=== PATIENT | male | born 1955 | race Caucasian/White ===

== ENCOUNTER 2021-02-14 09:46 | Outpatient (REF) | payer OTHER, SELFPAY ==
[2021-02-14 11:21] LABS: MANUAL DIFF FLAG NO
[2021-02-14 11:32] LABS: Basophils Percent Auto 0.2 % (0-2); Eosinophils Absolute Auto 0.1 X10*3/uL (0.0-0.4); Eosinophils Percent Auto 1.7 % (0-4); Hematocrit 40.9 % (42-52); Hemoglobin 13.6 g/dl (14.0-18.0); Imm Gran Abs Auto 0.02 X10*3/uL (0.00-0.03); Imm Gran Pct Auto 0.4 % (0.0-0.4); Lymphocytes Absolute Auto 1.1 X10*3/uL (1.2-4.9); Lymphocytes Percent Auto 20.6 % (20-40); Mean Corpuscular HGB Conc 33.3 g/dl (31.0-36.0); Mean Corpuscular Hemoglobin 32.7 pg (27.0-33.0); Mean Corpuscular Volume 98.3 fL (80-98); Mean Platelet Volume 9.3 fL (9.4-12.4); Monocytes Absolute Auto 0.4 X10*3/uL (0.1-1.2); Monocytes Percent Auto 7.8 % (2-11); Neutrophils Absolute Auto 3.7 X10*3/uL (2.0-8.3); Neutrophils Percent Auto 69.3 % (45-73); Platelet Count 282 X10*3/uL (160-400); Red Blood Count 4.16 X10*6/uL (4.60-5.80); Red Cell Distribution Width 13.5 % (11.0-16.0); White Blood Count 5.3 X10*3/uL (4.8-10.8)
[2021-02-14 12:10] LABS: Alanine Aminotransferase 16 U/L (0-40); Alkaline Phosphatase 57 U/L (39-117); Anion Gap 14 (12-20); Aspartate Amino Transferase 21 U/L (5-37); Bilirubin Total 0.9 mg/dL (0.0-1.0); Blood Urea Nitrogen 11 mg/dL (9-16); Calcium 8.9 mg/dL (8.4-10.2); Carbon Dioxide 25 mmol/L (22-29); Chloride 101 mmol/L (96-108); Cholesterol 148 mg/dL; Estimated Glomerular Filt Rate > 60; Glucose Fasting 114 mg/dL (60-99); HDL Cholesterol 78 mg/dL; LDL Cholesterol Calculated 65 mg/dl; Potassium 4.7 mmol/L (3.3-5.1); Sodium 135 mmol/L (135-145); Total Protein 6.8 g/dL (6.5-8.0); Triglycerides 28 mg/dL
== END 2021-02-14 09:47 | disposition home or self-care (01) ==
LOC: HO.MANLDS 09:46
PROVIDERS: PCP Internal Medicine; Visit Provider Physician Assistant
DX: E78.00 Pure hypercholesterolemia, unspecified (principal)
CPT/HCPCS: 36415; 80053; 80061; 85025

== ENCOUNTER 2021-12-22 11:58 | Outpatient (REF) | payer MEDICARE, OTHER, SELFPAY ==
[2021-12-22 13:03] LABS: Appearance Urine CLEAR; Color Urine YELLOW; Glucose Urine UA NEG (NEG); Leukocyte Esterase Urine NEG (NEG); Nitrite Urine NEG (NEG); Specific Gravity - Urine <= 1.005 (1.005-1.025); Urine Blood NEG (NEG); Urine Ketones NEG (NEG); Urine Protein NEG (NEG-TRACE)
== END 2021-12-22 11:59 | disposition home or self-care (01) ==
LOC: HO.MANLNP 11:58
PROVIDERS: Visit Provider Physician Assistant
DX: R30.0 Dysuria (principal)
CPT/HCPCS: 81003

== ENCOUNTER 2023-05-15 10:11 | Outpatient (REF) | payer MEDICARE, SELFPAY ==
[2023-05-15 10:24] LABS: MANUAL DIFF FLAG NO
[2023-05-15 10:58] LABS: Basophils Percent Auto 0.5 % (0-2); Eosinophils Absolute Auto 0.1 X10*3/uL (0.0-0.4); Eosinophils Percent Auto 1.6 % (0-4); Hematocrit 39.4 % (42.0-52.0); Hemoglobin 13.5 g/dl (14.0-18.0); Imm Gran Abs Auto 0.02 X10*3/uL (0.00-0.03); Imm Gran Pct Auto 0.3 % (0.0-0.4); Lymphocytes Absolute Auto 1.1 X10*3/uL (1.2-4.9); Mean Corpuscular HGB Conc 34.3 g/dl (31.0-36.0); Mean Corpuscular Hemoglobin 32.8 pg (27.0-33.0); Mean Corpuscular Volume 95.6 fL (80.0-98.0); Mean Platelet Volume 8.5 fL (9.4-12.4); Monocytes Absolute Auto 0.5 X10*3/uL (0.1-1.2); Neutrophils Absolute Auto 4.4 x10*3/uL (2.0-8.3); Neutrophils Percent Auto 71.6 % (45-73); Platelet Count 312 X10*3/uL (160-400); Red Blood Count 4.12 X10*6/uL (4.60-5.80); White Blood Count 6.2 X10*3/uL (4.8-10.8)
[2023-05-15 11:40] LABS: Alanine Aminotransferase 20 U/L (0-40); Albumin Level 4.2 g/dL (3.5-5.0); Alkaline Phosphatase 58 U/L (39-117); Anion Gap 15 (12-20); Aspartate Amino Transferase 26 U/L (5-37); Bilirubin Total 0.7 mg/dL (0.0-1.0); Blood Urea Nitrogen 12 mg/dL (9-16); Calcium 9.1 mg/dL (8.4-10.2); Carbon Dioxide 26 mmol/L (22-29); Chloride 97 mmol/L (96-108); Estimated Glomerular Filt Rate > 60; Glucose Random 109 mg/dL (60-115); Potassium 4.6 mmol/L (3.3-5.1); Sodium 133 mmol/L (135-145); Total Protein 7.1 g/dL (6.5-8.0)
[2023-05-15 11:58] LABS: Thyroid Stimulating Hormone 1.38 uIU/mL (0.32-4.0)
== END 2023-05-15 10:12 | disposition home or self-care (01) ==
LOC: HO.LAB 10:11
PROVIDERS: PCP Internal Medicine; Visit Provider Internal Medicine
DX: F32.A Depression, unspecified (principal)
CPT/HCPCS: 36415; 80053; 84443; 85025

== ENCOUNTER 2023-06-12 18:52 | Outpatient (REF) | payer MEDICARE, OTHER, SELFPAY ==
--- NOTE | ~2023-06-12 | MR_ITS ---
EXAMINATION: MR BRAIN WITHOUT CONTRAST CLINICAL INFORMATION: Head injury, memory loss, forgetfulness COMPARISON: None available. TECHNIQUE: MRI of the brain was obtained using routine sequences without contrast. FINDINGS: There is no reduced diffusion to suggest acute infarct. Susceptibility weighted sequence is within normal limits. No mass effect, extra-axial collection, midline shift, or other herniation. Generalized cerebral volume loss with associated ventricular and sulcal prominence. Periventricular and subcortical T2/FLAIR hyperintense foci are specific but likely represent chronic microvascular ischemic change. Likely mild asymmetric volume loss in the left hippocampus. Intracranial flow voids are preserved. Trace mucosal thickening in the ethmoid air cells. The mastoid air cells are well-aerated. No expansile or destructive osseous lesion. MR/MR head/brain wo con IMPRESSION: Generalized cerebral volume loss with associated ventricular and sulcal prominence. Mild chronic microvascular ischemic change.
== END 2023-06-12 18:53 | disposition home or self-care (01) ==
LOC: HO.MRI 18:52
PROVIDERS: PCP Internal Medicine; Visit Provider Internal Medicine
DX: S09.90XA Unspecified injury of head, initial encounter (principal)
CPT/HCPCS: 70551

== ENCOUNTER → 2023-09-02 08:31 | Outpatient (REF) | payer MEDICARE, OTHER, SELFPAY ==
--- NOTE | 2023-09-02 08:37 | ECG_ITS ---
Test Reason : Z79.899 Blood Pressure : / mmHG Vent. Rate : 099 BPM Atrial Rate : 099 BPM P-R Int : 166 ms QRS Dur : 092 ms QT Int : 336 ms P-R-T Axes : 000 056 012 degrees QTc Int : 431 ms Rhythm shows atrial flutter with variable block Abnormal ECG When compared with ECG of 21-JUN-2003 11:03, Rhythm change Referred By: Néstor Busch Electronically Signed By:ROSELYN OCHOA
== END ==
LOC: HO.CARD 08:31
PROVIDERS: PCP Internal Medicine; Visit Provider Internal Medicine
DX: Z79.899 Other long term (current) drug therapy (principal)
CPT/HCPCS: 93005

== ENCOUNTER → 2023-09-02 08:37 | Outpatient (BNV) | payer MEDICARE, OTHER, SELFPAY | PROVIDERS: PCP Internal Medicine; Visit Provider Internal Medicine | DX: I48.92 Unspecified atrial flutter (principal); Z79.899 Other long term (current) drug therapy | CPT/HCPCS: 93010 ==

== ENCOUNTER 2023-09-10 12:44 | Outpatient (AMB) | payer MEDICARE, OTHER, SELFPAY ==
--- NOTE | 2023-09-10 12:51 | MHC.OFFVIS ---
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 It seems that he has been having a lot of memory issues. That led to him being on citalopram through his own PCP. As part of monitoring, he had a routine EKG and that showed atrial flutter leading to referral. Patient himself does not have any history of cardiac issues including coronary disease or myocardial infarction or cardiomyopathy. Also denies any chest pain or shortness of breath or any symptoms at all. As far as memory is concerned, it seems there is some improvement recently. No clear diagnosis as to why. [facility] Surgical History (Updated 09/10/23 @ 13:00 by Emily Jones) Total knee replacement status Family History (Updated 09/10/23 @ 13:01 by Emily Jones) Mother No problems noted. Father Heart problem Social History (Updated 09/10/23 @ 13:01 by Emily Jones) Alcohol intake: current Alcohol intake frequency: holidays/special occasions only Patient Tobacco Use Status: Never used Tobacco Review of Systems Const Denies chills, Denies daytime sleepiness, Denies fatigue, Denies fever(s), Denies frequent falls, Denies night sweats, Denies snoring, Denies weakness, Denies weight gain and Denies weight loss Eyes Denies loss of vision ENT Denies dizziness and Denies hearing loss Card Denies chest pain, Denies chest pain with activity, Denies syncope, Denies rapid heart rate, Denies edema, Denies claudication, Denies leg edema, Denies lightheadedness, Denies palpitations, Denies dyspnea, Denies dyspnea on exertion and Denies orthopnea Resp Denies cough, Denies excessive phlegm production, Denies dyspnea, Denies dyspnea on exertion, Denies snoring and Denies wheezing GI Denies abdominal pain, Denies hematochezia, Denies change in bowel habits, Denies change in stool character, Denies heartburn, Denies nausea and Denies vomiting Denies hematuria, Denies dysuria and Denies urinary frequency Musc Denies arthralgias, Denies muscle weakness, Denies numbness and Denies tingling Skin/Breast Denies nail changes and Denies rash Neuro Denies Abnormal speech present, Denies dizziness, Denies syncope, Denies frequent falls, Denies loss of vision, Denies memory loss, Denies numbness, Denies tingling and Denies weakness Psych Denies depression and Denies memory loss Endo Denies fatigue and Denies palpitations Aller/Immun Denies wheezing Physical Exam Vital Signs: Last Vital Signs Pulse 71 09/10/23 12:57 BP 136/72 09/10/23 12:57 BMI result Body Mass Index 34.7 Const General: comfortable and no acute distress Orientation/consciousness: patient oriented x3 HEENT Other: Unremarkable Head: Yes normal to inspection Neck Neck: Yes normal visual inspection Chest Chest palpation & inspection: normal inspection of the chest Resp Auscultation: clear to auscultation bilaterally Cardio Palpation: normal PMI Heart sounds: S1 normal heart sound present, S2 normal heart sound present, no gallops, no murmurs and no rubs GI Palpation (GI): Soft to palpation Back/Spine/Pelvis Other: unremarkable Skin General skin exam: no rashes or lesions noted Neuro General: patient oriented x3 Speech: No Abnormal speech present Extrem General: Yes normal to inspection Psych Mental Status: mental status grossly normal Assessment & Plan Assessment & Plan (1) Typical atrial flutter: Code(s): I48.3 - Typical atrial flutter Plan In the recent EKG, underlying rhythm is atrial flutter at a rate of 99/Min. Variable block. There is no recent EKG for comparison and the previous studies from more than 20 years ago. That showed sinus rhythm. Overall, recently diagnosed atrial flutter of unknown duration. Rate control without medications suggestive of conduction system disease as well. Patient denies any overt symptoms. With regard to workup, recommend getting an echocardiogram, Holter as well as ischemic workup with stress test. Highly unlikely to exercise on the treadmill and hence do pharmacological stress test with Lexiscan. His labs are fairly unremarkable in the past. Check protime INR. Has relatively low CHADS-VASc score but still recommend starting Eliquis at least for the foreseeable future. Then we can decide. Due to patient having memory issues, not clear how much she comprehends but explained to his in detail. She understands and actually wrote down. If the memory problems get worse, then consider neurology consultation. Not clear if early stages of dementia. Orders: Orders CA echo transthoracic complete Today I48.3 - Typical atrial flutter ECG 3 day holter monitor Today I48.3 - Typical atrial flutter Basic Metabolic Panel Today I48.3 - Typical atrial flutter Prothrombin Time INR Today I48.3 - Typical atrial flutter CA lexiscan stress w erik Today I20.9 - Angina pectoris, unspecified, I48.3 - Typical atrial flutter NM cardiolite stress test Today I48.3 - Typical atrial flutter, R07.2 - Precordial pain Medications: New apixaban (Eliquis) 5 mg PO BID 180 tabs 3RF 90 days I48.3 - Typical atrial flutter Coding Level of Care Code New Pt Level 4 (38754) Diagnoses Typical atrial flutter I48.3
[2023-09-10 12:57] VITALS: BP 136/72; PULSE 71; BMI 34.7
== END 2023-09-10 13:24 | disposition home or self-care (01) ==
PROVIDERS: PCP Internal Medicine; Visit Provider Internal Medicine
DX: I48.3 Typical atrial flutter (principal)
CPT/HCPCS: 99204

== ENCOUNTER 2023-09-10 12:44 | Outpatient (REF) | payer MEDICARE, OTHER, SELFPAY ==
[2023-09-10 14:53] LABS: INTERNATIONAL NORM RATIO 0.9 (0.9-1.1); Prothrombin Time 11.5 SEC (11.1-13.3)
[2023-09-10 15:09] LABS: Anion Gap 10 (12-20); Blood Urea Nitrogen 12 mg/dL (9-16); Calcium 8.7 mg/dL (8.4-10.2); Carbon Dioxide 27 mmol/L (22-29); Chloride 100 mmol/L (96-108); Estimated Glomerular Filt Rate > 60; Glucose Random 83 mg/dL (60-115); Potassium 4.4 mmol/L (3.3-5.1); Sodium 133 mmol/L (135-145)
== END 2023-09-10 12:45 | disposition home or self-care (01) ==
LOC: HO.LAB 12:44
PROVIDERS: PCP Internal Medicine; Visit Provider Internal Medicine
DX: I48.3 Typical atrial flutter (principal)
CPT/HCPCS: 36415; 80048; 85610; 99202

== ENCOUNTER → 2023-10-15 07:54 | Outpatient (REF) | payer MEDICARE, OTHER, SELFPAY ==
--- NOTE | ~2023-10-15 | NM_ITS ---
Lexiscan Myocardial perfusion study Indication: Atrial flutter, assess for coronary disease ischemia Technique: The patient was brought in for a Lexiscan perfusion study on 10/15/2023 and was injected 0.4 mg of Lexiscan intravenously. Within a minute of this injection 30 mCi of sestamibi was given intravenously. Images were obtained using the SPECT gamma camera interlaced with the gating device. Images were obtained in supine position. Resting perfusion study was performed on 10/18/2023. Patient was administered 30 mCi of sestamibi intravenously at rest. Images were then obtained in supine position. Images were processed with the software and compared side to side in short axis, horizontal long axis and vertical long axis views. Total DLP 106mGy-cm. Findings: Raw acquisition reviewed. The stress perfusion study showed no significant perfusion abnormality. Both uncorrected as well as CT attenuation corrected images were reviewed. The gated study shows normal LV systolic function with calculated LVEF of 60%. LV cavity is normal in size. The gated study shows normal wall thickening and contraction of segments. Resting study shows no significant perfusion abnormality. Gating at rest reveals normal wall motion with ejection fraction at 62%. The findings are consistent with no clear reversible or fixed perfusion abnormality. NM/NM cardiolite stress test Impression: 1. Myocardial perfusion imaging study shows normal myocardial perfusion. 2. Gated LVEF is 60% during stress and 62% during rest. 3. Transient ischemic dilatation not present. EKG component of the test reported separately.
--- NOTE | 2023-10-15 08:01 | CA_ITS ---
Transthoracic Echocardiogram Patient (Last, First, Middle): Kash Cruz, Gender: Male Date of : 1955 Age: 68 Procedure Date: 10/15/2023 Procedure Type: Transthoracic Echocardiogram Location: OP Height: 170.18 cm Weight: 95.26 kg BSA: 2.06 m2 Heart Rate: bpm BP: 140 / 72 mmHg Mercantile Agent: TO Referring MD: Sudhakar Springer MD Symptoms: I48.3 - Typical atrial flutter Study Quality: Fair ECG Rhythm: Atrial flutter Conclusions: - The left ventricular systolic function is mildly decreased. The calculated ejection fraction is 51% by biplane method. - Left atrium is at least moderately dilated. - No obvious valvular pathology seen on this study. Findings Left Ventricle Normal left ventricular cavity size. The left ventricular systolic function is mildly decreased. The calculated ejection fraction is 51% by biplane method. There is no evidence of regional wall motion abnormalities. Diastolic function is indeterminate on the basis of available data. There is mild septal asymmetric hypertrophy. Right Ventricle Normal right ventricular cavity size and systolic function. Atria Left atrium is at least moderately dilated. The right atrium is normal in size. Aortic Valve The aortic valve structure and function is likely normal. There is no aortic valve stenosis. There is no aortic valve regurgitation. Mitral Valve The mitral valve appears normal. There is trace mitral valve regurgitation. There is no mitral valve stenosis. Pulmonic Valve The pulmonic valve is likely normal. Tricuspid Valve There is trace tricuspid valve regurgitation. Tricuspid regurgitation envelope is inadequate for calculation of right ventricular systolic pressure. Great Vessels The asc aorta is normal in size. Venous The inferior vena cava is mildly dilated and collapses greater than 50% with inspiration. Pericardium/Pleural There is no evidence of pericardial effusion. Prior Study Comparison No prior study available for comparison. Recommendations, Care & Conclusions No obvious valvular pathology seen on this study. Measurements 2D Linear Measurements IVSd: 1.10 0.6-0.9/0.6-1.0 cm LVIDd: 5.76 3.9-5.3/4.2-5.9 cm LVIDd Index: 2.80 2.4-3.2/2.2-3.1 cm/m2 LVIDs: 4.27 2.0-3.6 cm LVPWd: 0.85 0.7-1.1 cm LA Diam: 4.90 2.7-3.8/3.0-4.0 cm LAIDs Index: 2.38 1.5-2.3 cm/m2 LV Mass: 276.97 67-162/88-224 g LV Mass Index: 134.45 43-95/49-115 g/m2 LVOT Diam: 2.40 3.0+(-)1.3 cm 2D Systolic Function EF 4C: 55.30 >55% EF 2C: 48.10 >55% EF BiP: 51.40 >55% Mitral Valve MV Pk E: 0.80 MV PK A: 0.55 MV Decel Time: 163.00 E/A: 1.50 E'Lateral: 13.10 E'Medial: 10.30 E/E' Med: 7.70 E/E' Lat: 6.10 PHT: 48.00 MVA PHT: 4.58 Decel [place]: 5.49 Aortic Valve AoV Pk Frank: 1.23 AoV Pk Grad: 6.00 LVOT LVOT Pk Frank: 0.87 LVOT Mn Frank: 0.58 LVOT VTI: 0.18 LVOT Pk Grad: 3.00 LVOT Mn Grad: 2.00 LVOT Diam: 2.40 LVOT Area: 4.52 Diastolic Function MV Pk E: 0.80 MV Pk A: 0.55 E/A: 1.50 E'Medial: 10.30 E/E' Med: 7.70 E' Laterial: 13.10 E/E' Lat: 6.10 Right Ventricle TAPSE (mm): 23.60 TVS' Frank: 14.30 Tricuspid Valve RA Press: 8.00 Great Vessels Aorta Sinus of Valsalva: 3.89 2.0-3.5 cm Ao Asc: 3.70 2.1-3.4 cm Updated in Other Vendor System with Status of Final Sudhakar Springer MD electronically signed on 10/17/2023 11:15:14 AM with status of Final
--- NOTE | 2023-10-15 08:01 | CA_ITS ---
Acquisition Time: 2023-10-15 09:37:06 Total Exercise Time: 00:02:00 Test Indications: AFLUTTER Medications: Protocol: LEXISCAN Max HR: 126 BPM 82% of Pred: 153 BPM Max BP: 152/082 mmHG Max Work Load: 1.0 METS Pharmacological stress test with lexiscan injection while sitting still, without anginal symptoms, without arrhythmias, with resting HTN, with normotenisve response to injection, with nondiagnostic EKGs. Aminophylline 75mg IVP given to reverse Lexiscan injection. Nuclear images pending. Test reviewed with Dr. Springer. Referred By: Sudhakar Springer Overread By: Marcella Martinez
--- NOTE | 2023-10-15 08:01 | HM_ITS ---
Conclusion: 1. Patient was monitored for total period of 3 days 2. Baseline was atrial fibrillation with average heart of 85 beats per minute 3. No significant pauses noted 4. No patient reported events MTDD
== END ==
LOC: HO.CARD 07:54
PROVIDERS: PCP Internal Medicine; Visit Provider Internal Medicine
DX: R07.2 Precordial pain (principal); I20.9 Angina pectoris, unspecified; I48.3 Typical atrial flutter
CPT/HCPCS: 78452; 93017; 93242; 93306; A9500; J0280; J2785

== ENCOUNTER → 2023-10-15 08:01 | Outpatient (BNV) | payer MEDICARE, OTHER, SELFPAY | PROVIDERS: PCP Internal Medicine; Visit Provider Nurse Practitioner | DX: I48.91 Unspecified atrial fibrillation (principal) | CPT/HCPCS: 78452; 93016; 93018; 93244; 93350 ==

== ENCOUNTER 2023-11-26 12:47 | Outpatient (AMB) | payer MEDICARE, OTHER, SELFPAY ==
[2023-11-26 12:52] VITALS: BP 130/70; PULSE 89; BMI 35.4
--- NOTE | 2023-11-26 12:52 | MHC.OFFVIS ---
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 Recently seen in consultation regarding atrial flutter. He has memory issues and that led him to start citalopram through his own PCP. As part of monitoring, he had a routine EKG and that showed atrial flutter leading to referral. Patient himself does not have any history of cardiac issues including coronary disease or myocardial infarction or cardiomyopathy. Also denies any chest pain or shortness of breath or any symptoms at all. Since last seen, he has completed an echocardiogram, Holter and stress test. [facility] Surgical History Total knee replacement status Family History Mother No problems noted. Father Heart problem Social History Alcohol intake: current Alcohol intake frequency: holidays/special occasions only Patient Tobacco Use Status: Never used Tobacco Review of Systems Const Denies chills, Denies fatigue, Denies fever(s), Denies frequent falls, Denies weakness, Denies weight gain and Denies weight loss ENT Denies dizziness Card Denies chest pain, Denies leg edema, Denies lightheadedness, Denies palpitations, Denies dyspnea and Denies dyspnea on exertion Resp Denies cough, Denies dyspnea and Denies dyspnea on exertion GI Denies hematochezia Musc Denies abnormal gait, Denies muscle weakness, Denies numbness, Denies radiating pain into limb and Denies tingling Neuro Denies abnormal gait, Denies dizziness, Denies frequent falls, Denies numbness, Denies tingling and Denies weakness Endo Denies fatigue and Denies palpitations Physical Exam Vital Signs: Last Vital Signs Pulse 89 11/26/23 12:52 BP 130/70 11/26/23 12:52 BMI result Body Mass Index 35.4 Const General: comfortable and no acute distress Orientation/consciousness: patient oriented x3 HEENT Other: Unremarkable Head: Yes normal to inspection Neck Neck: Yes normal visual inspection Chest Chest palpation & inspection: normal inspection of the chest Resp Auscultation: clear to auscultation bilaterally Cardio Palpation: normal PMI Heart sounds: S1 normal heart sound present, S2 normal heart sound present, no gallops, no murmurs and no rubs GI Palpation (GI): Soft to palpation Back/Spine/Pelvis Other: unremarkable Skin General skin exam: no rashes or lesions noted Neuro General: patient oriented x3 Extrem General: Yes normal to inspection Psych Mental Status: mental status grossly normal Office Procedures EKG Details: EKG with atrial flutter with variable block at 89/Min; can not exclude old inferior infarct. [id number], Complete Assessment & Plan Assessment & Plan (1) Typical atrial flutter: Code(s): I48.3 - Typical atrial flutter Category: Medical Plan Cardiac studies reviewed. EKG with atrial flutter/variable block. Holter monitor with underlying atrial flutter/fibrillation and adequately rate controlled. Echocardiogram with mild reduced LVEF at 51%. Left atrium at least moderately dilated. Myocardial perfusion imaging study shows normal perfusion. Overall, atrial flutter of unknown duration. He has no overt symptoms but relatively of young age and hence would like to keep him in sinus rhythm. Hence discussed about cardioversion and they agree. We can schedule and proceed. He is taken anticoagulation for at least 4 weeks' time. Discussed with significant other. Coding Level of Care Code Est Pt Level 4 (08994) Diagnoses Typical atrial flutter I48.3 CPT Codes EKG - CPT: 90631-[id number], Complete ([id number])
== END 2023-11-26 13:30 | disposition home or self-care (01) ==
PROVIDERS: PCP Internal Medicine; Visit Provider Internal Medicine
DX: I48.3 Typical atrial flutter (principal)
CPT/HCPCS: 93010; 99214

== ENCOUNTER → 2023-11-26 12:47 | Outpatient (BNVA) | payer MEDICARE, OTHER, SELFPAY | PROVIDERS: PCP Internal Medicine; Visit Provider Internal Medicine | DX: I48.3 Typical atrial flutter (principal) | CPT/HCPCS: 93005; 99212 ==

== ENCOUNTER 2023-11-29 11:15 | Day surgery (SDC) | payer MEDICARE, OTHER, SELFPAY ==
--- NOTE | 2023-11-28 09:43 | HO.ANESPROP2 ---
Documented by User: Tatiana Hitchcock NP 11/28/23 09:48 HPI - Anesthesia Eval Consult details Narrative: 68yo M for Cardioversion xarelto for afib PMFSH Active Problems Active Problems: All Active Problems Typical atrial flutter (Acute) Past Medical History Medical History (Updated 11/28/23 @ 09:48 by Tatiana Hitchcock NP) Typical atrial flutter Family History Family History Mother No problems noted. Father Heart problem Surgical History Surgical History Total knee replacement status Social History Social History Alcohol intake: current Alcohol intake frequency: holidays/special occasions only Patient Tobacco Use Status: Never used Tobacco Use of substances other than those prescribed or required for medical reasons: No Are you DNR?: No Advance Directives: No Advance Directives Information Provided: Yes Meds Allergies Allergy/AdvReac Type Severity Reaction Status Date / Time No Known Allergies Allergy Verified 11/29/23 11:58 Home Medications ?Medication ?Instructions ?Recorded ?Confirmed ?Last Taken ?Type citalopram 40 mg tablet 20 mg PO DAILY 09/10/23 11/29/23 Unknown History aspirin 81 mg tablet,delayed 81 mg PO DAILY 11/28/23 11/28/23 Unknown History release Exam Pertinent Lab Results Pertinent Lab Results: Laboratory Tests 05/15/23 09/10/23 10:21 14:23 WBC 6.2 Hgb 13.5 L Hct 39.4 L Plt Count 312 Sodium 133 L Potassium 4.4 Chloride 100 Carbon Dioxide 27 BUN 12 Creatinine 0.70 Narrative Narrative: EKG 10/2023 atrial flutter with variable block at 89/Min; can not exclude old inferior infarct ECHO 09/2023 Conclusions: - The left ventricular systolic function is mildly decreased. The calculated ejection fraction is 51% by biplane method. - Left atrium is at least moderately dilated. - No obvious valvular pathology seen on this study. NM cardiolite stress test 09/2023 Impression: 1. Myocardial perfusion imaging study shows normal myocardial perfusion. 2. Gated LVEF is 60% during stress and 62% during rest. 3. Transient ischemic dilatation not present. EKG component of the test reported separately. Assessment and Plan Assessment Anesthesia Assessment: Chart Reviewed Documented by User: Deborah Garza MD 11/29/23 12:14 [facility] Past Medical History Medical History (Updated 11/28/23 @ 09:48 by Tatiana Hitchcock NP) Typical atrial flutter Family History Family History Mother No problems noted. Father Heart problem Family history of problems with anesthesia: No Surgical History Surgical History Total knee replacement status History of Problems with Anesthesia: No Social History Social History Alcohol intake: current Alcohol intake frequency: holidays/special occasions only Patient Tobacco Use Status: Never used Tobacco Use of substances other than those prescribed or required for medical reasons: No Are you DNR?: No Advance Directives: No Advance Directives Information Provided: Yes Meds Allergies Allergy/AdvReac Type Severity Reaction Status Date / Time No Known Allergies Allergy Verified 11/29/23 11:58 Home Medications ?Medication ?Instructions ?Recorded ?Confirmed ?Last Taken ?Type citalopram 40 mg tablet 20 mg PO DAILY 09/10/23 11/29/23 Unknown History aspirin 81 mg tablet,delayed 81 mg PO DAILY 11/28/23 11/28/23 Unknown History release Exam Airway Mallampati Class: II TM Dist: >3cm Neck ROM: Full Heart: rrr Lungs: cta Assessment and Plan Assessment Anesthesia Assessment: Anesthesia Plan Discussed Final Anesthetic Review Family History of Problems with Anesthesia: No History of Problems with Anesthesia: No NPO: Yes ASA Class: III Final Preanesthetic Review: No Changes in Pt Med Stat, Meds/Allgs Chart Reviewed and Consent Obtained/Reviewed Patient Risk: Intermediate Procedure Risk: Low Anesthetic Plan Anesthetic Plan: MAC: Disposition: Standard PACU
[2023-11-29 11:42] VITALS: BMI 34.9
[2023-11-29 11:45] VITALS: BP 140/69; PULSE 107; RESP 18; TEMP 36.8; O2SAT 99
--- NOTE | 2023-11-29 12:16 | MHC.SHP ---
Pre-Procedural Eval Section A - 24 Hr Update-Section A only Date of Service: 11/29/23 The patient is an INPATIENT: No Section B - Complete if H&P > 30 days Chief Complaint: Unspecified atrial flutter Allergies: Allergies Allergy/AdvReac Type Severity Reaction Status Date / Time No Known Allergies Allergy Verified 11/29/23 11:58 Plan I have reviewed the history and physical and performed a pertinent physical examination on my patient. No changes have occurred unless specified. Time Spent With Patient Time: Total time managing care of this patient today ____ minutes.
--- NOTE | 2023-11-29 12:16 | HO.CARDIVERS ---
Cardioversion Procedure Note Cardioversion Date of Procedure: 11/29/2023 Indication for Procedure: Atrial flutter Pre-Op Diagnosis: Atrial flutter Post-Op Diagnosis: Sinus rhythm Consent: Informed consent obtained. Procedure: After informed consent was obtained, patient was taken to the PACU. The patient was then positioned appropriately. The cardioversion pads were placed in anteroposterior position. Once under anesthesia, 120 joules of synchronized shock was administered. The rhythm converted from atrial fibrillation to sinus rhythm. Patient remained in sinus rhythm after the end of procedure. Complications: None. Impression: Successful cardioversion from atrial flutter to sinus rhythm. Recommendations: Start metoprolol. Start flecainide. We will follow in clinic. Discussed with .
--- NOTE | 2023-11-29 12:36 | ECG_ITS ---
Test Reason : S/P CARDIOVERSION Blood Pressure : / mmHG Vent. Rate : 079 BPM Atrial Rate : 079 BPM P-R Int : 150 ms QRS Dur : 090 ms QT Int : 380 ms P-R-T Axes : 060 051 034 degrees QTc Int : 435 ms Normal sinus rhythm Normal ECG When compared with ECG of 02-SEP-2023 08:41, rhythm change Referred By: Roselyn Ochoa Electronically Signed By:ROSELYN OCHOA
[2023-11-29 12:40] VITALS: BP 101/56; PULSE 73; RESP 16; TEMP 36.8; O2SAT 97
[2023-11-29 12:45] VITALS: BP 119/67; PULSE 80; RESP 16; O2SAT 100
[2023-11-29 12:50] VITALS: BP 127/66; PULSE 79; RESP 17; O2SAT 100
[2023-11-29 12:55] VITALS: BP 123/60; BP 123/61; PULSE 82; PULSE 83; RESP 17; O2SAT 97
[2023-11-29] MEDS: Metoprolol Tartrate 25 MG TABLET PO (12:55)
[2023-11-29] MEDS: Flecainide Acetate 50 MG TABLET 100 MG PO (12:55)
[2023-11-29 13:10] VITALS: BP 122/62; PULSE 87; RESP 17; TEMP 36.9; O2SAT 98
== END 2023-11-29 13:40 | disposition home or self-care (01) ==
PROVIDERS: PCP Internal Medicine; Visit Provider Internal Medicine
PROC: 5A2204Z Restoration of Cardiac Rhythm, Single (ICD-10-PCS; principal; 2023-11-29 13:00)
DX: I48.3 Typical atrial flutter (principal); Z79.01 Long term (current) use of anticoagulants; Z79.899 Other long term (current) drug therapy
CPT/HCPCS: 92960; 93005; J2250; J2704

== ENCOUNTER → 2023-11-29 11:15 | Outpatient (BNV) | payer MEDICARE, OTHER, SELFPAY | PROVIDERS: PCP Internal Medicine; Visit Provider Internal Medicine | DX: I48.92 Unspecified atrial flutter (principal) | CPT/HCPCS: 92960 ==

== ENCOUNTER → 2023-11-29 12:36 | Outpatient (BNV) | payer MEDICARE, OTHER, SELFPAY | PROVIDERS: PCP Internal Medicine; Visit Provider Internal Medicine | DX: I48.92 Unspecified atrial flutter (principal) | CPT/HCPCS: 93010 ==

== ENCOUNTER 2023-12-05 09:36 | Outpatient (AMB) | payer MEDICARE, OTHER, SELFPAY ==
--- NOTE | 2023-12-05 10:15 | AM.OFFVISNUR ---
Intake Intake Visit Reasons: EKG Allergies No Known Allergies Allergy (Verified 11/29/23 11:58) Nursing Note PT is here for EKG PT is on Flecainide 50 mg EKG will be reviewed by Provider Office Procedures EKG [id number], Complete Coding CPT Codes EKG - CPT: 50991-[id number], Complete ([id number])
== END 2023-12-05 10:52 | disposition home or self-care (01) ==
PROVIDERS: PCP Internal Medicine; Visit Provider Internal Medicine
DX: I48.91 Unspecified atrial fibrillation (principal); Z98.890 Other specified postprocedural states
CPT/HCPCS: 93010

== ENCOUNTER → 2023-12-05 09:36 | Outpatient (BNVA) | payer MEDICARE, OTHER, SELFPAY | PROVIDERS: PCP Internal Medicine; Visit Provider Internal Medicine | DX: Z79.899 Other long term (current) drug therapy (principal) | CPT/HCPCS: 93005 ==

== ENCOUNTER → 2023-12-13 11:20 | Outpatient (REF) | payer MEDICARE, OTHER, SELFPAY ==
--- NOTE | 2023-12-13 11:23 | HM_ITS ---
* Total monitoring time 3 days. * Underlying rhythm is atrial flutter. Average ventricular rate 78/Min. * No significant tachycardic episodes, bradycardia or pauses. * No patient markers or diary events. MTDD
== END ==
LOC: HO.CARD 11:20
PROVIDERS: PCP Internal Medicine; Visit Provider Internal Medicine
DX: I48.3 Typical atrial flutter (principal)
CPT/HCPCS: 93242

== ENCOUNTER → 2023-12-13 11:23 | Outpatient (BNV) | payer MEDICARE, OTHER, SELFPAY | PROVIDERS: PCP Internal Medicine; Visit Provider Internal Medicine | DX: I48.92 Unspecified atrial flutter (principal) | CPT/HCPCS: 93244 ==

== ENCOUNTER 2024-01-21 10:35 | Outpatient (AMB) | payer MEDICARE, OTHER, SELFPAY ==
[2024-01-21 10:38] VITALS: BP 140/68; PULSE 94; BMI 34.2
--- NOTE | 2024-01-21 10:38 | A.OFFVIS_ITS ---
Vital Signs 01/21/24 10:38 Height 5 ft 7 in Weight 218 lb 4.122 oz BMI 34.2 BP 140/68 H Blood Pressure Location Lt brachial Position Sitting Pulse 94 Pulse Source Pulse Oximeter Intake Visit Reasons: F/U after Holter Results Allergies No Known Allergies Allergy (Verified 11/29/23 11:58) Medication List - Last Reconciled 01/21/24 by Sudhakar Springer MD atorvastatin 40 mg PO QPM citalopram 20 mg PO DAILY metoprolol succinate ER 25 mg PO DAILY rivaroxaban (Xarelto) 20 mg PO DAILY HPI Comments Details: Kash returns for follow-up. Few months back, we saw him in consultation regarding atrial flutter. He has memory issues and that led him to start citalopram through his own PCP. As part of monitoring, he had a routine EKG and that showed atrial flutter leading to referral. Patient himself does not have any history of cardiac issues including coronary disease or myocardial infarction or cardiomyopathy. Also denies any chest pain or shortness of breath or any symptoms at all. Some sleepiness during the day but otherwise nothing definitively cardiac. After a long discussion, he underwent cardioversion and started flecainide, but he went back into atrial flutter. Again, main complaint is just sleepiness during the day but nothing else. [facility] Medical History (Updated 11/28/23 @ 09:48 by Tatiana Hitchcock NP) Typical atrial flutter Surgical History Total knee replacement status Family History Mother No problems noted. Father Heart problem Social History Alcohol intake: current Alcohol intake frequency: holidays/special occasions only Patient Tobacco Use Status: Never used Tobacco Review of Systems Const Denies weakness ENT Denies dizziness Card Denies chest pain, Denies chest pain with activity, Denies syncope, Denies rapid heart rate, Denies pedal edema, Denies edema, Denies leg edema, Denies lightheadedness, Denies palpitations, Denies dyspnea, Denies dyspnea on exertion and Denies orthopnea Resp Denies cough, Denies dyspnea and Denies dyspnea on exertion GI Denies hematochezia and Denies change in stool character Musc Denies abnormal gait, Denies muscle cramps, Denies muscle weakness, Denies numbness, Denies radiating pain into limb and Denies tingling Neuro Denies abnormal gait, Denies dizziness, Denies syncope, Denies numbness, Denies tingling and Denies weakness Endo Denies palpitations Physical Exam Vital Signs: Last Vital Signs Pulse 94 01/21/24 10:38 BP 140/68 H 01/21/24 10:38 BMI result Body Mass Index 34.2 Const General: comfortable and no acute distress Orientation/consciousness: patient oriented x3 HEENT Other: Unremarkable Head: Yes normal to inspection Neck Neck: Yes normal visual inspection Chest Chest palpation & inspection: normal inspection of the chest Resp Auscultation: clear to auscultation bilaterally Cardio Palpation: normal PMI Heart sounds: S1 normal heart sound present, S2 normal heart sound present, no gallops, no murmurs and no rubs GI Palpation (GI): Soft to palpation Back/Spine/Pelvis Other: unremarkable Skin General skin exam: no rashes or lesions noted Neuro General: patient oriented x3 Extrem General: Yes normal to inspection Psych Mental Status: mental status grossly normal Assessment & Plan Assessment & Plan (1) Typical atrial flutter: Code(s): I48.3 - Typical atrial flutter Category: Medical Plan Cardiac studies reviewed. EKG with atrial flutter/variable block. Original Holter monitor with underlying atrial flutter and adequately rate controlled. Repeat Holter after cardioversion again shows atrial flutter with an average rate of 78/Min. Echocardiogram with mild reduced LVEF at 51%. Left atrium at least moderately dilated. Myocardial perfusion imaging study shows normal perfusion. Status post cardioversion but failed in spite of flecainide use. We discussed about further options. We discussed about leaving him on rate control only versus EP study/ablation. Patient and family are interested in EP evaluation/ablation. Will request the same. Follow-up after the above. Orders: Referrals Cardiac Electrophysiology Referral I42.9 - Cardiomyopathy, unspecified, I48.3 - Typical atrial flutter Coding Level of Care Code Est Pt Level 4 (76559) Diagnoses Typical atrial flutter I48.3
== END 2024-01-21 11:03 | disposition home or self-care (01) ==
PROVIDERS: PCP Internal Medicine; Visit Provider Internal Medicine
DX: I48.3 Typical atrial flutter (principal)
CPT/HCPCS: 99214

== ENCOUNTER → 2024-01-21 10:35 | Outpatient (BNVA) | payer MEDICARE, OTHER, SELFPAY | PROVIDERS: PCP Internal Medicine; Visit Provider Internal Medicine | DX: I48.3 Typical atrial flutter (principal) | CPT/HCPCS: 99212 ==

== ENCOUNTER 2024-04-15 10:01 | Outpatient (AMB) | payer MEDICARE, OTHER, SELFPAY ==
[2024-04-15 10:14] VITALS: BP 118/60; PULSE 88; BMI 33.8
--- NOTE | 2024-04-15 10:14 | A.OFFVIS_ITS ---
Vital Signs 04/15/24 10:14 Height 5 ft 7 in Weight 216 lb BMI 33.8 BP 118/60 Blood Pressure Location Lt brachial Position Sitting Pulse 88 Pulse Source Pulse Oximeter Intake Visit Reasons: 3 mth f/up chalhoub Allergies No Known Allergies Allergy (Verified 11/29/23 11:58) Medication List - Last Reconciled 04/15/24 by Sudhakar Springer MD atorvastatin 40 mg PO QPM citalopram 20 mg PO DAILY metoprolol succinate ER 25 mg PO DAILY rivaroxaban (Xarelto) 20 mg PO DAILY HPI Comments Details: Kash returns for follow-up. Originally, seen in consultation regarding atrial flutter. He has memory issues and that led him to start citalopram through his own PCP. As part of monitoring, he had a routine EKG and that showed atrial flutter leading to referral. Patient himself does not have any history of cardiac issues including coronary disease or myocardial infarction or cardiomyopathy. Also denies any chest pain or shortness of breath or any symptoms at all. Some sleepiness during the day but otherwise nothing definitively cardiac. He underwent cardioversion and started flecainide, but he went back into atrial flutter. Following this, we referred him to EP for further evaluation. Ablation was offered but patient decided against it. He states he feels fine. Main issue is still memory related. From cardiac, still denies symptoms. [facility] Medical History (Updated 04/15/24 @ 10:23 by Sudhakar Springer MD) DARRIAN on CPAP Typical atrial flutter Surgical History Total knee replacement status Family History Mother No problems noted. Father Heart problem Social History Alcohol intake: current Alcohol intake frequency: holidays/special occasions only Patient Tobacco Use Status: Never used Tobacco Review of Systems Const Denies weakness ENT Denies dizziness Card Denies chest pain, Denies chest pain with activity, Denies syncope, Denies rapid heart rate, Denies pedal edema, Denies edema, Denies leg edema, Denies lightheadedness, Denies palpitations, Denies dyspnea, Denies dyspnea on exertion and Denies orthopnea Resp Denies cough, Denies dyspnea and Denies dyspnea on exertion GI Denies hematochezia and Denies change in stool character Musc Denies abnormal gait, Denies muscle cramps, Denies muscle weakness, Denies numbness, Denies radiating pain into limb and Denies tingling Neuro Denies abnormal gait, Denies dizziness, Denies syncope, Denies numbness, Denies tingling and Denies weakness Endo Denies palpitations Physical Exam Vital Signs: Last Vital Signs Pulse 88 04/15/24 10:14 BP 118/60 04/15/24 10:14 BMI result Body Mass Index 33.8 Const General: comfortable and no acute distress Orientation/consciousness: patient oriented x3 HEENT Other: Unremarkable Head: Yes normal to inspection Neck Neck: Yes normal visual inspection Chest Chest palpation & inspection: normal inspection of the chest Resp Auscultation: clear to auscultation bilaterally Cardio Palpation: normal PMI Heart sounds: S1 normal heart sound present, S2 normal heart sound present, no gallops, no murmurs and no rubs GI Palpation (GI): Soft to palpation Back/Spine/Pelvis Other: unremarkable Skin General skin exam: no rashes or lesions noted Neuro General: patient oriented x3 Extrem General: Yes normal to inspection Psych Mental Status: mental status grossly normal Assessment & Plan Assessment & Plan (1) Typical atrial flutter: Code(s): I48.3 - Typical atrial flutter Category: Medical Plan Cardiac studies reviewed. EKG with atrial flutter/variable block. Initial Holter monitor with underlying atrial flutter and adequately rate contr olled. Repeat Holter after cardioversion again shows atrial flutter with an average rate of 78/Min. Echocardiogram with mild reduced LVEF at 51%. Left atrium at least moderately dilated. Myocardial perfusion imaging study shows normal perfusion. Status post cardioversion but failed in spite of flecainide use. Seen by EP and offered ablation but patient decided against it. He states he would like to just stay on medications. He is mainly concerned about his memory loss. Otherwise, no specific changes and he can get routine blood work through his own PCP due to Xarelto use. We discussed about that today. Follow-up in 1 year. In the interim, they will contact us with any concerns. Discussed with significant other. Total time spent including review of data, counseling, documentation, coor dination of care-32 minutes. Orders: Orders ECG 3 day holter monitor 1 Year I48.3 - Typical atrial flutter Coding Level of Care Code Est Pt Level 4 (96057) Diagnoses Typical atrial flutter I48.3
== END 2024-04-15 10:30 | disposition home or self-care (01) ==
PROVIDERS: PCP Internal Medicine; Visit Provider Internal Medicine
DX: I48.3 Typical atrial flutter (principal)
CPT/HCPCS: 99214

== ENCOUNTER → 2024-04-15 10:01 | Outpatient (BNVA) | payer MEDICARE, OTHER, SELFPAY | PROVIDERS: PCP Internal Medicine; Visit Provider Internal Medicine | DX: I48.3 Typical atrial flutter (principal) | CPT/HCPCS: 99212 ==

== ENCOUNTER 2024-04-21 10:53 | Outpatient (REF) | payer MEDICARE, OTHER, SELFPAY ==
[2024-04-21 11:06] LABS: MANUAL DIFF FLAG NO
[2024-04-21 11:46] LABS: Basophils Percent Auto 0.5 % (0-2); Eosinophils Percent Auto 0.5 % (0-4); Hematocrit 38.5 % (42.0-52.0); Hemoglobin 13.4 g/dl (14.0-18.0); Imm Gran Abs Auto 0.02 X10*3/uL (0.00-0.03); Imm Gran Pct Auto 0.3 % (0.0-0.4); Lymphocytes Percent Auto 15.6 % (20-40); Mean Corpuscular HGB Conc 34.8 g/dl (31.0-36.0); Mean Corpuscular Hemoglobin 34.2 pg (27.0-33.0); Mean Corpuscular Volume 98.2 fL (80.0-98.0); Mean Platelet Volume 8.6 fL (9.4-12.4); Monocytes Absolute Auto 0.5 X10*3/uL (0.1-1.2); Monocytes Percent Auto 7.3 % (2-11); Neutrophils Absolute Auto 4.9 x10*3/uL (2.0-8.3); Neutrophils Percent Auto 75.8 % (45-73); Platelet Count 255 X10*3/uL (160-400); Red Blood Count 3.92 X10*6/uL (4.60-5.80); Red Cell Distribution Width 13.6 % (11.0-16.0); White Blood Count 6.4 X10*3/uL (4.8-10.8)
[2024-04-21 12:24] LABS: Alanine Aminotransferase 47 U/L (0-40); Albumin Level 4.1 g/dL (3.5-5.0); Alkaline Phosphatase 53 U/L (39-117); Anion Gap 13 (12-20); Aspartate Amino Transferase 49 U/L (5-37); Bilirubin Total 0.9 mg/dL (0.0-1.0); Blood Urea Nitrogen 7 mg/dL (9-16); Calcium 9.1 mg/dL (8.4-10.2); Carbon Dioxide 26 mmol/L (22-29); Chloride 99 mmol/L (96-108); Estimated Glomerular Filt Rate > 60; Glucose Random 103 mg/dL (60-115); Potassium 4.5 mmol/L (3.3-5.1); Sodium 133 mmol/L (135-145)
[2024-04-21 12:32] LABS: Thyroid Stimulating Hormone 1.05 uIU/mL (0.32-4.0)
[2024-04-21 12:34] LABS: Prostate Specific Antigen 0.91 ng/mL (<0.05-4.0); Vitamin B12 591 pg/mL (200-900)
== END 2024-04-21 10:54 | disposition home or self-care (01) ==
LOC: HO.LAB 10:53
PROVIDERS: PCP Internal Medicine; Visit Provider Internal Medicine
DX: Z00.00 Encounter for general adult medical examination without abnormal findings (principal); Z12.5 Encounter for screening for malignant neoplasm of prostate
CPT/HCPCS: 36415; 80053; 82306; 82607; 84153; 84443; 85025

== ENCOUNTER → 2025-04-07 09:57 | Outpatient (REF) | payer MEDICARE, OTHER, SELFPAY ==
--- NOTE | 2025-04-07 10:01 | HM_ITS ---
* Total monitoring time 3 days. * Underlying rhythm is atrial fibrillation with an average rate of 74/Min. * Rare ventricular ectopy with a burden of 0.2%. Four couplets. Two triplets. * Longest pause 2.69 seconds during sleep hours, does not reach significance. * No patient markers or diary events. MTDD
--- OUTSIDE RECORDS SUMMARY | 2025-04-07 12:02 | XMS_ITS | Patient Health Record ---
Demographics Address [address] [place] [address] Preferred Language Unknown Marital Status unmarried Pentecostalism Affiliation Unknown Race Unknown Ethnic Group Unknown Author Organization [facility] [place] Address [address] [place] [address] Care Team Providers Care Clothing Patternmaker Name Role Phone Aki Krishnamurthy Jr [phone] Reason For Referral No Information Plan Of Treatment No Information
== END ==
LOC: HO.CARD 09:57
PROVIDERS: PCP Internal Medicine; Visit Provider Internal Medicine
DX: I48.3 Typical atrial flutter (principal); I48.4 Atypical atrial flutter
CPT/HCPCS: 93242

== ENCOUNTER → 2025-04-07 10:01 | Outpatient (BNV) | payer MEDICARE, OTHER, SELFPAY | PROVIDERS: PCP Internal Medicine; Visit Provider Internal Medicine | DX: I48.91 Unspecified atrial fibrillation (principal); I49.3 Ventricular premature depolarization | CPT/HCPCS: 93244 ==

== ENCOUNTER 2025-04-20 09:52 | Outpatient (AMB) | payer MEDICARE, OTHER, SELFPAY ==
--- NOTE | 2025-04-20 09:56 | MHC.OFFVIS ---
Vital Signs 04/20/25 09:58 Height 5 ft 7 in Weight 216 lb 0.848 oz BMI 33.8 BP 110/64 Blood Pressure Location Lt brachial Position Sitting Pulse 89 Pulse Source Monitor Intake Visit Reasons: 1 yr s/p holter Engraver Lettering Required: No Accompanied by: Son Allergies No Known Allergies Allergy (Verified 11/29/23 11:58) Medication List - Last Reconciled 04/20/25 by Sudhakar Springer MD atorvastatin 40 mg PO QPM citalopram 20 mg PO DAILY metoprolol succinate ER 25 mg PO DAILY rivaroxaban (Xarelto) 20 mg PO DAILY HPI Comments Details: Kash returns for follow-up. Originally, seen in consultation regarding atrial flutter. He has memory issues and that led him to start citalopram through his own PCP. As part of monitoring, he had a routine EKG and that showed atrial flutter leading to referral. Patient himself does not have any history of cardiac issues including coronary disease or myocardial infarction or cardiomyopathy. Also denies any chest pain or shortness of breath or any symptoms at all. He underwent cardioversion and started flecainide, but he went back into atrial flutter. Following this, we referred him to EP for further evaluation. Ablation was offered but patient decided against it. Since last seen, no new concerns. No cardiac symptoms. He is still mainly concerned about the memory. [facility] Medical History DARRIAN on CPAP Typical atrial flutter Surgical History Total knee replacement status Family History Mother No problems noted. Father Heart problem Social History Alcohol intake: current Alcohol intake frequency: holidays/special occasions only Patient Tobacco Use Status: Never used Tobacco Review of Systems Const Denies chills, Denies fatigue, Denies fever(s), Denies frequent falls, Denies weakness, Denies weight gain and Denies weight loss ENT Denies dizziness Card Denies chest pain, Denies leg edema, Denies lightheadedness, Denies palpitations, Denies dyspnea and Denies dyspnea on exertion Resp Denies cough, Denies dyspnea and Denies dyspnea on exertion GI Denies hematochezia Musc Denies abnormal gait, Denies muscle weakness, Denies numbness, Denies radiating pain into limb and Denies tingling Neuro Denies abnormal gait, Denies dizziness, Denies frequent falls, Denies numbness, Denies tingling and Denies weakness Endo Denies fatigue and Denies palpitations Physical Exam Vital Signs: Last Vital Signs Pulse 89 04/20/25 09:58 BP 110/64 04/20/25 09:58 BMI result Body Mass Index 33.8 Const General: comfortable and no acute distress Orientation/consciousness: patient oriented x3 HEENT Other: Unremarkable Head: Yes normal to inspection Neck Neck: Yes normal visual inspection Chest Chest palpation & inspection: normal inspection of the chest Resp Auscultation: clear to auscultation bilaterally Cardio Palpation: normal PMI Heart sounds: S1 normal heart sound present, S2 normal heart sound present, no gallops, no murmurs and no rubs GI Palpation (GI): Soft to palpation Back/Spine/Pelvis Other: unremarkable Skin General skin exam: no rashes or lesions noted Neuro General: patient oriented x3 Extrem General: Yes normal to inspection Psych Mental Status: mental status grossly normal Office Procedures EKG Details: EKG with atrial fibrillation at a rate of 89/Min. [id number], Complete Assessment & Plan Assessment & Plan (1) Typical atrial flutter: Code(s): I48.3 - Typical atrial flutter Category: Medical (2) Persistent atrial fibrillation: Code(s): I48.19 - Other persistent atrial fibrillation Category: Medical (3) Memory deficit: Code(s): R41.3 - Other amnesia Category: Medical Plan Cardiac studies reviewed. Initial Holter monitor with underlying atrial flutter and adequately rate controlled. Repeat Holter after cardioversion again shows atrial flutter with an average rate of 78/Min. In the most recent Holter from last week, underlying atrial fibrillation with an average rate of 74/Min. Echocardiogram with mild reduced LVEF at 51%. Left atrium at least moderately dilated. Myocardial perfusion imaging study shows normal perfusion. Overall, failed cardioversion, seen EP but do not want ablation. Hence continue rate controlled as currently on. Seems to be stable on metoprolol and Xarelto. We will continue the same. Otherwise, with regard to labs, he has not had them in a year and he needs some. He states he is going to his PCP tomorrow and strongly recommended that he gets repeat labs. They made a note of that. Advised him to send us a copy. Otherwise, with regard to the memory issues recommend seeing neurology. Follow up in one year. Discussed with son who came for appointment. Discussed with significant other. Total time spent including review of data, counseling, documentation, coordination of care-32 minutes. Discussion Notes During the visit, we discussed the importance of maintaining his current medication regimen for atrial fibrillation to prevent complications such as stroke. We also emphasized the need for regular follow-up appointments to monitor his condition and adjust treatment as necessary. Patient was informed and verbally consented to the use of an ambient scribe for clinic note documentation during this visit. Patient Instructions: - Continue taking your current medications as prescribed. - Schedule regular follow-up appointments to monitor your conditions. - Consider seeing a neurologist to assess memory loss. Coding Level of Care Code Est Pt Level 4 (86232) Complex EM visit Add On G2211 Diagnoses Typical atrial flutter I48.3 Persistent atrial fibrillation I48.19 Memory deficit R41.3 CPT Codes EKG - CPT: 02560-[id number], Complete ([id number])
[2025-04-20 09:58] VITALS: BP 110/64; PULSE 89; BMI 33.8
--- OUTSIDE RECORDS SUMMARY | 2025-04-20 11:52 | XMS_ITS | Patient Health Record ---
Demographics Address [address] [place] [address] Preferred Language Unknown Marital Status unmarried Sikh Affiliation Unknown Race Unknown Ethnic Group Unknown Author Organization [facility] Address [address] [place] [address] Care Team Providers Care Lead Assistant Manager Name Role Phone Aki Krishnamurthy Jr [phone] Reason For Referral No Information Plan Of Treatment No Information
== END 2025-04-20 10:20 | disposition home or self-care (01) ==
LOC: HO.HCS 09:52
PROVIDERS: PCP Internal Medicine; Visit Provider Internal Medicine
DX: I48.3 Typical atrial flutter (principal); I48.19 Other persistent atrial fibrillation; R41.3 Other amnesia
CPT/HCPCS: 93010; 99214; G2211

== ENCOUNTER → 2025-04-20 09:52 | Outpatient (BNVA) | payer MEDICARE, OTHER, SELFPAY | PROVIDERS: PCP Internal Medicine; Visit Provider Internal Medicine | DX: I48.3 Typical atrial flutter (principal); I48.19 Other persistent atrial fibrillation; R41.3 Other amnesia; R94.31 Abnormal electrocardiogram [ECG] [EKG] | CPT/HCPCS: 93005; 99212 ==

== ENCOUNTER 2025-05-05 17:03 | Inpatient (IN) | payer MEDICARE, OTHER, SELFPAY ==
--- NOTE | ~2025-05-05 | MR_ITS ---
CLINICAL HISTORY: confusion; word finding difficulty MR Brain without gadolinium Comparison: MR/RI/SR - MR HEAD/BRAIN WO CON - 06/12/23 19:32 EST Findings: No restricted diffusion. No intra-axial mass or hemorrhage. Periventricular t2/FLAIR hyperintensities, nonspecific, however may represent sequela of chronic microvascular ischemic disease. No midline shift. No hydrocephalus. Vascular flow voids are intact. Orbital contents are unremarkable. Moderate right maxillary and ethmoid sinus disease. No focal bone lesion. IMPRESSION: No acute intracranial abnormality. This document has been electronically signed by: Faye Jaimes MD on 05/05/2025 21:32:25
--- NOTE | ~2025-05-05 | CT_ITS ---
CLINICAL HISTORY: Stroke Protocol CT Brain without contrast Comparison: None FINDINGS: Cortical sulci: There is diffuse prominence of the cortical sulci compatible with age-related atrophy. Ventricles: Normal for age. Brain parenchyma: There is patchy lucency throughout the deep white matter indicating chronic microvascular leukomalacia. There is subtle asymmetric decrease of attenuation of the left occipital and parietal lobe. Extra-axial spaces: Normal Posterior Fossa: Normal Extracranial soft tissues: Normal Additional abnormality: None IMPRESSION: No acute intracranial hemorrhage. Subtle asymmetric decrease of attenuation of the left occipital and parietal lobe. The fernandes-white matter differentiation is maintained. Acute infarction in the area cannot be excluded. Correlation with MRI findings as indicated. This document has been electronically signed by: Justino Issa MD on 05/05/2025 17:52:53
--- NOTE | ~2025-05-05 | CT_ITS ---
CLINICAL HISTORY: Stroke Protocol CT angiography head and neck with contrast. 3D Postprocessing. Comparison: None provided Findings: Examination is limited due to the phase of contrast. Evaluation of the proximal common carotid artery and vertebral artery is limited by imaging artifact. Aortic arch and cervical great vessels are patent with no aneurysm, dissection, hemodynamically significant stenoses, or occlusion. Atherosclerosis calcification of the left carotid bulb and cavernous segment of the internal carotid artery. There is calcification of the right V4 segment. Intracranial arteries are patent. No aneurysm, dissection, hemodynamically significant stenoses, or occlusion. No abnormal intracranial enhancement. The visualized thyroid gland is unremarkable. No cervical mass or fluid collection. Lung apices clear. No acute fracture. IMPRESSION: No evidence of stenoses of the internal carotid artery. No large intracranial artery occlusion. Limitation as above. This document has been electronically signed by: Justino Issa MD on 05/05/2025 18:33:24
[2025-05-05 17:16] VITALS: BP 132/76; PULSE 78; RESP 18; TEMP 37.3; O2SAT 95; BMI 33.0
--- NOTE | 2025-05-05 17:21 | ECG_ITS ---
Test Reason : STROKE Blood Pressure : */* mmHG Vent. Rate : 83 BPM Atrial Rate : * BPM P-R Int : * ms QRS Dur : 92 ms QT Int : 366 ms P-R-T Axes : * 43 22 degrees QTcB Int : 430 ms Atrial fibrillation Abnormal ECG When compared with ECG of 29-Nov-2023 12:48, Atrial fibrillation has replaced Sinus rhythm Referred By: Devi Espinoza Electronically Signed By: BRADY BOOKER MD
--- NOTE | 2025-05-05 17:24 | ED_ITS ---
HPI - Neuro Symptoms/Deficit General Chief Complaint: Stroke Stated Complaint: Confused, cognitive delay Time Seen by Provider: 05/05/25 17:29 Source: patient and family ( daughter) Mode of arrival: ambulatory Limitations: no limitations History of Present Illness ED Provider: DR. Rivero HPI Narrative: 69-year-old male brought in by his daughter for evaluation of confusion that is started around 15:00 today, patient with known history of atrial flutter on rivaroxaban 20 mg daily patient noticed by his family to be confused thinking that he was working all day today patient is retired for 3 years, patient also think that his nephew is baby-sitting that he has not seen his nephew for wide sometimes, patient in the emergency department feel dizzy, disoriented and confused. No headache, no blurry vision, no neck stiffness, no fever, no chills. Related Data Home Medications ?Medication ?Instructions ?Recorded ?Confirmed atorvastatin 40 mg tablet 40 mg PO BEDTIME 01/21/24 diphenhydramine 25 1 tab PO BEDTIME PRN Sleep 1 05/05/25 mg-acetaminophen 500 mg tablet (Tylenol PM Extra Strength) vrkysmancsey-wph-cfbtb acid-vit 1 tab PO DAILY 5 05/05/25 K-lycop 400 mcg-20 mcg-370 mcg tablet (Men's 50 Plus Daily Formula) Previous Rx's ?Medication ?Instructions ?Recorded metoprolol succinate 25 mg 25 mg PO DAILY #90 tabs 09/22 tablet,extended release 24 hr rivaroxaban 20 mg tablet (Xarelto) 20 mg PO DAILY #90 tabs 10/28/24 Allergies Allergy/AdvReac Type Severity Reaction Status Date / Time No Known Allergies Allergy Verified 05/05/25 17:19 Review of Systems 2 Review of Systems: All other systems are reviewed and are negative Constitutional: Reports as per HPI and Reports no additional constitutional complaints Eyes: Reports as per HPI and Reports no additional eye complaints Reports system reviewed and no additional complaints, except as documented Cardiovascular: Reports as per HPI and Reports no additional cardiovascular complaints Respiratory: Reports as per HPI and Reports no additional respiratory complaints Gastrointestinal: Reports as per HPI and Reports no additional gastrointestinal complaints Genitourinary: Reports no additional female genitourinary complaints Musculoskeletal: Reports no additional musculoskeletal complaints Skin/Breast: Reports system reviewed and no additional complaints, except as docu Psychiatric: Reports no additional psychiatric complaints Endocrine: Reports no additional endocrine complaints Hematologic/Lymphatic: Reports no additional hematologic/lymphatic complaints Allergic/Immunologic: Reports no additional allergic/immunologic complaints Reports system reviewed and no additional complaints, except as documented and Reports Abnormal speech present [facility] Past Medical History Medical History DARRIAN on CPAP Typical atrial flutter Surgical History Total knee replacement status Family History Family History Mother No problems noted. Father Heart problem Social History Social History Alcohol intake: current Alcohol intake frequency: 3 or more drinks per day Alcohol type: beer Patient Tobacco Use Status: Never used Tobacco Smoked in Last 30 Days: No Use of substances other than those prescribed or required for medical reasons: No Advance Directives: No Advance Directives Information Provided: No Do you have a plan to hurt others: No Plan Physical Exam 2 Vital Signs: Vital Signs: Last Vital Signs Temp 99.1 F 05/05/25 21:08 Pulse 83 05/05/25 21:08 Resp 18 05/05/25 21:08 BP 129/77 05/05/25 21:08 Pulse Ox 95 05/05/25 21:08 O2 Del Method Room Air 05/05/25 21:08 BMI result Body Mass Index 33.0 Vital signs have been reviewed and appear to be correct. Blood pressure elevated. Heart rate normal. Respiratory rate normal. Temperature normal. Oxygen saturation normal. Appearance: Alert. Oriented X1 to person. No acute distress. Head: Normal external exam. Normocephalic. Atraumatic. No Mcdermott signs noted. No raccoon eyes noted Eyes: PERRLA. EOMI. Conjunctiva and sclera normal. Eyelids normal. ENT: TM's Normal. Pharynx normal. Uvula midline. Moist mucous membranes. No trismus noted. No drooling noted. No muffled voice noted. Neck: Normal inspection. Neck supple. FROM. No adenopathy. Thyroid Normal. No meningeal signs. No neck mass noted. CVS: Normal heart rate and rhythm. Heart sound normal. No murmurs noted. Pulses normal throughout. Respiratory: No respiratory distress. Painless inspiration. Breath sounds normal. No wheezes/rales/rhonchi noted. Chest nontender. No accessory muscle usage noted or decreased air movement noted. Abdomen: Soft and nontender. Bowel sounds normal in all 4 quadrants. No distention noted. No organomegaly noted. No visible injury noted. Back: No CVA tenderness. Full range of motion noted. Skin: Skin warm and dry. Normal skin color. Normal skin turgor. No rashes/lesions/lacerations noted. Extremities: No lower extremity edema. Extremities exhibit normal range of motion. Extremities nontender. Neuro: Mental status: Normal attention, orientation, memory, and affect. Cranial nerves: Pupils are equal, round and reactive to light, EOMI, visual ramires are fall, face is symmetric, facial sensations are normal. Motor examination normal muscle tone, strength to 4 extremities. DTR are +2, planter's are flexor. Sensory exam; normal coordination, no ataxia, gait stable. Cerebellar exam: Wvttxe-nw-ipxz and libg-ll-phhy is normal. Extrapyramidal system: No tremors, no rigidity with normal facial expressions. Pronator drift not present Course Course Course Narrative: This is a rapid medical exam performed by Michell Espinoza NP: Additional HPI, ROS, PE not included below will be deferred to primary provider. Patient is a 61-year-old male with history of AFib on Xarelto, memory deficit presenting to the emergency department with daughter who reports that her uncle called her around 4 p.m. 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 She states that he has been retired for 3 years and he was not baby sitting anyone today. Upon arrival to triage, patient unable to state why he is here and speaking nonsensical statements. No other focal neurological deficits noted. Plan: Patient activated as stroke alert, charge and Dr. Rivero aware Reevaluation(s) Reevaluation #1: 69-year-old male came in for a period of confusion and disorientation negative workup for acute stroke patient is not a candidate for thrombolysis or mechanical thrombolysis patient is on Xarelto for atrial flutter. Patient shows improvement while he is in the emergency department family stated that patient is coming slowly to his baseline. Time: 22:06 Medications Administered Discontinued Medications Generic Name Dose Route Start Last Admin Trade Name Elyssa PRN Reason Stop Dose Admin Iohexol 100 ml 05/05/25 17:33 05/05/25 17:34 Iohexol 350 Mg/Ml 100 Ml Infus..Btl IV 05/05/25 17:34 70 ml ONCE ONE Administration Medical Decision Making Differential Diagnosis Differential Diagnoses: The differential diagnosis associated with the presentation includes ( Ischemic stroke, hemorrhagic stroke, electrolyte derangement, severe anemia, dementia.) Admission/Observation Consideration of admission/observation: Escalation of care including admission/observation considered Lab Data MDM Lab Attestation statement: I reviewed the patient's lab results. 05/05/25 17:30 05/05/25 17:30 Labs: Lab Results 05/05/25 05/05/25 05/05/25 Range/Units 17:26 17:29 17:30 WBC 5.4 (4.8-10.8) X10*3/uL RBC 3.94 L (4.60-5.80) X10*6/uL Hgb 12.5 L (14.0-18.0) g/dl Hct 36.3 L (42.0-52.0) % MCV 92.1 (80.0-98.0) fL MCH 31.7 (27.0-33.0) pg MCHC 34.4 (31.0-36.0) g/dl RDW 14.3 (11.0-16.0) % Plt Count 200 (160-400) X10*3/uL MPV 8.8 L (9.4-12.4) fL Immature Gran % (Auto) 0.2 (0.0-0.4) % Neut % (Auto) 75.3 H (45-73) % Lymph % (Auto) 13.8 L (20-40) % [place] % (Auto) 10.3 (2-11) % Eos % (Auto) 0.2 (0-4) % Baso % (Auto) 0.2 (0-2) % Lymph # (Auto) 0.8 L (1.2-4.9) X10*3/uL [place] # (Auto) 0.6 (0.1-1.2) X10*3/uL Eos # (Auto) 0.0 (0.0-0.4) X10*3/uL Baso # (Auto) 0.0 (0.0-0.2) X10*3/uL Abs Immat Gran (auto) 0.01 (0.00-0.03) X10*3/uL Absolute Neuts (auto) 4.1 (2.0-8.3) x10*3/uL Absolute Nucleated RBC 0.000 (0.0-0.012) X10*3/uL Nucleated RBC % (auto) 0.0 (0.0-0.2) /100WBC Hold Purple Top SEE NOTE PT 17.6 H (10.9-12.4) SEC Whole Blood PT 15.8 H (11.1-13.5) sec INR 1.5 H (0.9-1.1) Whole Blood INR 1.3 H (0.9-1.1) APTT 37.2 H (26.7-34.1) SEC Sodium 134 L (135-145) mmol/L Potassium 4.3 (3.3-5.1) mmol/L Chloride 102 (96-108) mmol/L Carbon Dioxide 25 (22-29) mmol/L Anion Gap 11 L (12-20) BUN 13 (9-16) mg/dL Creatinine 0.81 (0.5-1.4) mg/dL Estim Creat Clear Calc 96.1 Estimated GFR > 60 POC Glucose 97 (60-115) mg/dL Random Glucose 102 (60-115) mg/dL Lactic Acid 1.2 (0.5-2.0) mmol/L Calcium 8.6 (8.4-10.2) mg/dL Troponin I High Sens 5.6 (<3.5-35.0) ng/L Triglycerides 44 (<150) mg/dL Cholesterol 133 (<200) mg/dL LDL Cholesterol, Calc 58 (<100) mg/dL HDL Cholesterol 67 (>40) mg/dL Urine Color Urine Appearance Urine pH (5.0-9.0) Ur Specific [place] (1.005-1.025) Urine Protein (Neg-Trace) mg/dL Urine Glucose (UA) (Negative) mg/dL Urine Ketones (Negative) mg/dL Urine Blood (Negative) Urine Nitrite (Negative) Ur Leukocyte Esterase (Negative) 05/05/25 Range/Units 19:02 WBC (4.8-10.8) X10*3/uL RBC (4.60-5.80) X10*6/uL Hgb (14.0-18.0) g/dl Hct (42.0-52.0) % MCV (80.0-98.0) fL MCH (27.0-33.0) pg MCHC (31.0-36.0) g/dl RDW (11.0-16.0) % Plt Count (160-400) X10*3/uL MPV (9.4-12.4) fL Immature Gran % (Auto) (0.0-0.4) % Neut % (Auto) (45-73) % Lymph % (Auto) (20-40) % [place] % (Auto) (2-11) % Eos % (Auto) (0-4) % Baso % (Auto) (0-2) % Lymph # (Auto) (1.2-4.9) X10*3/uL [place] # (Auto) (0.1-1.2) X10*3/uL Eos # (Auto) (0.0-0.4) X10*3/uL Baso # (Auto) (0.0-0.2) X10*3/uL Abs Immat Gran (auto) (0.00-0.03) X10*3/uL Absolute Neuts (auto) (2.0-8.3) x10*3/uL Absolute Nucleated RBC (0.0-0.012) X10*3/uL Nucleated RBC % (auto) (0.0-0.2) /100WBC Hold Purple Top PT (10.9-12.4) SEC Whole Blood PT (11.1-13.5) sec INR (0.9-1.1) Whole Blood INR (0.9-1.1) APTT (26.7-34.1) SEC Sodium (135-145) mmol/L Potassium (3.3-5.1) mmol/L Chloride (96-108) mmol/L Carbon Dioxide (22-29) mmol/L Anion Gap (12-20) BUN (9-16) mg/dL Creatinine (0.5-1.4) mg/dL Estim Creat Clear Calc Estimated GFR POC Glucose (60-115) mg/dL Random Glucose (60-115) mg/dL Lactic Acid (0.5-2.0) mmol/L Calcium (8.4-10.2) mg/dL Troponin I High Sens (<3.5-35.0) ng/L Triglycerides (<150) mg/dL Cholesterol (<200) mg/dL LDL Cholesterol, Calc (<100) mg/dL HDL Cholesterol (>40) mg/dL Urine Color Yellow Urine Appearance Clear Urine pH 6.5 (5.0-9.0) Ur Specific [place] >= 1.030 H (1.005-1.025) Urine Protein Negative (Neg-Trace) mg/dL Urine Glucose (UA) Negative (Negative) mg/dL Urine Ketones 15 (Negative) mg/dL Urine Blood Negative (Negative) Urine Nitrite Negative (Negative) Ur Leukocyte Esterase Negative (Negative) Independent Interpretation I performed an independent interpretation of an: CT Scan ( CT head/ head/neck CTA:No evidence of stenoses of the internal carotid artery. No large intracranial artery occlusion. Limitation as above.) and MRI ( Brain MRI: no acute intracranial abnormality.) Radiology Impression Discussion of test interpretation with radiology: I have reviewed the radiologist's reading. NIH Stroke Scale Internal: Initial- Upon Arrival Time: 17:26 Level of Consciousness: Alert Level of Consciousness Questions: Answers neither question correctly Level of Consciousness Commands: Performs both tasks correctly Best Gaze: Normal Visual: No visual loss Facial Palsy: Normal Motor Arm (Right): No drift Motor Arm (Left): No drift Motor Leg (Right): No drift Motor Leg (Left): No drift Limb Ataxia: Absent Sensory: Normal Best Language: No aphasia Dysarthia: Mild to moderate dysarthria Extinction and Inattention: No abnormality Score: 3 Critical Care Time Critical Care Time Critical Care Time: Yes Total Critical Care Time: 60 Attestation: The patient was critically ill with a high probability of imminent or life- threatening deterioration. I spent greater than 30 minutes of discontinuous time evaluating the patient, delivering critical care at the bedside, discussing evaluating data with consultants. Critical care time does not include time spent performing separately billable procedures or teaching. Time spent performing critical care was 60 minutes. Discharge Plan Discharge Clinical Impression: Transient cerebral ischemia, Acute confusion Patient Disposition: Admitted As Inpatient
--- NOTE | 2025-05-05 17:29 | ED.NEUROSD ---
HPI - Neuro Symptoms/Deficit General Chief Complaint: Stroke Stated Complaint: Confused, cognitive delay Time Seen by Provider: 05/05/25 17:29 Related Data Home Medications ?Medication ?Instructions ?Recorded ?Confirmed citalopram 40 mg tablet 20 mg PO DAILY 09/10/23 04/20/25 atorvastatin 40 mg tablet 40 mg PO QPM 01/21/24 04/20/25 Previous Rx's ?Medication ?Instructions ?Recorded metoprolol succinate 25 mg 25 mg PO DAILY #90 tabs 10/28/24 tablet,extended release 24 hr rivaroxaban 20 mg tablet (Xarelto) 20 mg PO DAILY #90 tabs 10/28/24 Allergies Allergy/AdvReac Type Severity Reaction Status Date / Time No Known Allergies Allergy Verified 05/05/25 17:19 [facility] Past Medical History Medical History DARRIAN on CPAP Typical atrial flutter Surgical History Total knee replacement status Family History Family History Mother No problems noted. Father Heart problem Social History Social History Alcohol intake: current Alcohol intake frequency: 3 or more drinks per day Alcohol type: beer Patient Tobacco Use Status: Never used Tobacco Smoked in Last 30 Days: No Use of substances other than those prescribed or required for medical reasons: No Advance Directives: No Advance Directives Information Provided: No Do you have a plan to hurt others: No Plan Physical Exam Vital Signs: Vital Signs: Last Vital Signs Temp 97.8 F 05/05/25 18:12 Pulse 80 05/05/25 18:24 Resp 17 05/05/25 18:24 BP 133/64 05/05/25 18:24 Pulse Ox 98 05/05/25 18:24 O2 Del Method Room Air 05/05/25 18:24 BMI result Body Mass Index 33.0 Course Reevaluation(s) Reevaluation #1: 69-year-old male no facial history of dementia came in with a period of confusion thought to be TIA, no large vessel occlusion on CTA, negative CT head. Will admit the patient for TIA evaluation. Patient is not a candidate for thrombolysis is on anticoagulation. not a candidate for mechanical thrombectomy either because improvement of the symptoms and no large vessel occlusion on CTA. Time: 19:28 Medications Administered Discontinued Medications Generic Name Dose Route Start Last Admin Trade Name Elyssa PRN Reason Stop Dose Admin Iohexol 100 ml 05/05/25 17:33 05/05/25 17:34 Iohexol 350 Mg/Ml 100 Ml Infus..Btl IV 05/05/25 17:34 70 ml ONCE ONE Administration Medical Decision Making Differential Diagnosis Differential Diagnoses: The differential diagnosis associated with the presentation includes ( TIA, stroke, confusion, dementia, electrolyte derangement, severe anemia, intracranial bleed.) Admission/Observation Consideration of admission/observation: Escalation of care including admission/observation considered Consult Healthcare Provider Management of the patient was discussed with: Hospitalist ( Dr. Driscoll) Lab Data MDM Lab Attestation statement: I reviewed the patient's lab results. 05/05/25 17:30 05/05/25 17:30 Labs: Lab Results 05/05/25 05/05/25 05/05/25 Range/Units 17:26 17:29 17:30 WBC 5.4 (4.8-10.8) X10*3/uL RBC 3.94 L (4.60-5.80) X10*6/uL Hgb 12.5 L (14.0-18.0) g/dl Hct 36.3 L (42.0-52.0) % MCV 92.1 (80.0-98.0) fL MCH 31.7 (27.0-33.0) pg MCHC 34.4 (31.0-36.0) g/dl RDW 14.3 (11.0-16.0) % Plt Count 200 (160-400) X10*3/uL MPV 8.8 L (9.4-12.4) fL Immature Gran % (Auto) 0.2 (0.0-0.4) % Neut % (Auto) 75.3 H (45-73) % Lymph % (Auto) 13.8 L (20-40) % [place] % (Auto) 10.3 (2-11) % Eos % (Auto) 0.2 (0-4) % Baso % (Auto) 0.2 (0-2) % Lymph # (Auto) 0.8 L (1.2-4.9) X10*3/uL [place] # (Auto) 0.6 (0.1-1.2) X10*3/uL Eos # (Auto) 0.0 (0.0-0.4) X10*3/uL Baso # (Auto) 0.0 (0.0-0.2) X10*3/uL Abs Immat Gran (auto) 0.01 (0.00-0.03) X10*3/uL Absolute Neuts (auto) 4.1 (2.0-8.3) x10*3/uL Absolute Nucleated RBC 0.000 (0.0-0.012) X10*3/uL Nucleated RBC % (auto) 0.0 (0.0-0.2) /100WBC Hold Purple Top SEE NOTE PT 17.6 H (10.9-12.4) SEC Whole Blood PT 15.8 H (11.1-13.5) sec INR 1.5 H (0.9-1.1) Whole Blood INR 1.3 H (0.9-1.1) APTT 37.2 H (26.7-34.1) SEC Sodium 134 L (135-145) mmol/L Potassium 4.3 (3.3-5.1) mmol/L Chloride 102 (96-108) mmol/L Carbon Dioxide 25 (22-29) mmol/L Anion Gap 11 L (12-20) BUN 13 (9-16) mg/dL Creatinine 0.81 (0.5-1.4) mg/dL Estim Creat Clear Calc 96.1 Estimated GFR > 60 POC Glucose 97 (60-115) mg/dL Random Glucose 102 (60-115) mg/dL Lactic Acid 1.2 (0.5-2.0) mmol/L Calcium 8.6 (8.4-10.2) mg/dL Troponin I High Sens 5.6 (<3.5-35.0) ng/L Triglycerides 44 (<150) mg/dL Cholesterol 133 (<200) mg/dL LDL Cholesterol, Calc 58 (<100) mg/dL HDL Cholesterol 67 (>40) mg/dL Independent Interpretation I performed an independent interpretation of an: CT Scan ( head/ CTA angio: No acute pathology.) Radiology Impression Discussion of test interpretation with radiology: I have reviewed the radiologist's reading. Critical Care Time Critical Care Time Critical Care Time: Yes Total Critical Care Time: 60 Attestation: The patient was critically ill with a high probability of imminent or life-threatening deterioration. I spent greater than 30 minutes of discontinuous time evaluating the patient, delivering critical care at the bedside, discussing evaluating data with consultants. Critical care time does not include time spent performing separately billable procedures or teaching. Time spent performing critical care was 60 minutes. Discharge Plan Discharge Clinical Impression: Transient cerebral ischemia, Acute confusion Patient Disposition: Admitted As Inpatient Print Language: Brune[place]
[2025-05-05] MEDS: iohexoL 350 MG/ML 100 ML INFUS..BTL IV (17:34)
[2025-05-05 17:37] LABS: Glucose, Whole Blood 97 mg/dL (60-115)
[2025-05-05 17:37] LABS: MANUAL DIFF FLAG NO
[2025-05-05 17:37] LABS: Prothrombin Time Whole Bld POC 15.8 sec (11.1-13.5); ~PT, ~INR - Anti Coag Clinic 1.3 (0.9-1.1)
[2025-05-05 17:44] LABS: Hematocrit 36.3 % (42.0-52.0); Hemoglobin 12.5 g/dl (14.0-18.0); Imm Gran Abs Auto 0.01 X10*3/uL (0.00-0.03); Imm Gran Pct Auto 0.2 % (0.0-0.4); Lymphocytes Absolute Auto 0.8 X10*3/uL (1.2-4.9); Mean Corpuscular HGB Conc 34.4 g/dl (31.0-36.0); Mean Corpuscular Hemoglobin 31.7 pg (27.0-33.0); Mean Corpuscular Volume 92.1 fL (80.0-98.0); NRBC Abs Auto 0.000 X10*3/uL (0.0-0.012); NRBC Pct Auto 0.0 /100WBC (0.0-0.2); Platelet Count 200 X10*3/uL (160-400); Red Blood Count 3.94 X10*6/uL (4.60-5.80); White Blood Count 5.4 X10*3/uL (4.8-10.8)
[2025-05-05 17:45] VITALS: PULSE 82; RESP 13; TEMP 36.9; O2SAT 100
--- NOTE | 2025-05-05 17:50 | PC.NURSE ---
Pt not able to state date, knows he is at [facility]. Difficulty work finding. Difficult stating DOB. Benson. HX a-fib, takes shaila, Recent cold.
[2025-05-05 17:51] LABS: INTERNATIONAL NORM RATIO 1.5 (0.9-1.1); Prothrombin Time 17.6 SEC (10.9-12.4)
[2025-05-05 17:53] LABS: Partial Thromboplastin Time 37.2 SEC (26.7-34.1)
[2025-05-05 17:55] VITALS: BP 135/87; PULSE 83; RESP 12; O2SAT 99
--- NOTE | 2025-05-05 17:57 | PC.NURSE ---
Pt able to transfer to stretcher with stand by assist. Making nonsensical statements about fireplace
[2025-05-05 18:01] LABS: Anion Gap 11 (12-20); Blood Urea Nitrogen 13 mg/dL (9-16); Calcium 8.6 mg/dL (8.4-10.2); Carbon Dioxide 25 mmol/L (22-29); Chloride 102 mmol/L (96-108); Cholesterol 133 mg/dL (<200); Creatinine Clr Calc Pharmacy 96.1; Estimated Glomerular Filt Rate > 60; HDL Cholesterol 67 mg/dL (>40); Potassium 4.3 mmol/L (3.3-5.1); Sodium 134 mmol/L (135-145); Triglycerides 44 mg/dL (<150)
[2025-05-05 18:03] LABS: Stroke Lab Use COMPLETE
[2025-05-05 18:04] LABS: Troponin-I High Sensitivity 5.6 ng/L (<3.5-35.0)
[2025-05-05 18:12] VITALS: BP 124/70; PULSE 87; RESP 20; TEMP 36.6; O2SAT 97
[2025-05-05 18:24] VITALS: BP 133/64; PULSE 80; RESP 17; O2SAT 98
--- NOTE | 2025-05-05 18:24 | PC.NURSE ---
Uses CPAP at night, no O2.
--- NOTE | 2025-05-05 18:27 | PC.NURSE ---
Drinks 6 beers a day
[2025-05-05 19:18] LABS: Appearance Urine Clear; Glucose Urine UA Negative (Negative); PH 6.5 (5.0-9.0); Specific Gravity - Urine >= 1.030 (1.005-1.025)
--- NOTE | 2025-05-05 19:36 | PM.IMHP ---
History of Present Illness Date of Service: 05/05/25 Chief Complaint: confusion 69-year-old male with a past medical history of HTN, HLD, atrial fibrillation on Xarelto; memory deficits; presented to the hospital today with a chief complaint of confusion/word-finding difficulty. Most of history obtained from the patient's daughter who reports that patient was noted to be confused and talking about his job for which he retired long ago. Mentions that her uncle went to check on the patient and and the patient is constantly talking about his job. Also noted patient having word-finding difficulty confirmed by the EMS subsequently brought into the hospital for further evaluation. At the time of my interview patient's speech is almost back to his normal as per the patient's daughter at bedside. Patient denies any numbness or tingling. Denies any headaches or blurry visions. Denies any focal weakness. Denies any GI or symptoms. Denies any chest pain or palpitations. Review of all other systems is negative except mentioned above ER course: Per ER team, patient's exam was nonfocal; symptoms resolved. Patient oriented times 2-3. UA negative. CT head and CT angio head and neck showed no acute findings. [facility] Medical History DARRIAN on CPAP Typical atrial flutter Family History Mother No problems noted. Father Heart problem Surgical History Total knee replacement status Social History Alcohol intake: current Alcohol intake frequency: 3 or more drinks per day Alcohol type: beer Patient Tobacco Use Status: Never used Tobacco service: No Meds Allergies Allergy/AdvReac Type Severity Reaction Status Date / Time No Known Allergies Allergy Verified 05/05/25 17:19 Active Medications: Current Medications Acetaminophen (Acetaminophen 325 Mg Tablet) 650 mg PO Q6H PRN PRN Reason: Pain, Mild 1-3,fever,headache Atorvastatin Calcium (Atorvastatin Calcium 80 Mg Tablet) 80 mg PO DAILY MAC Calcium Carbonate (Calcium Carbonate 750 Mg Tab.Chew) 750 mg PO Q4H PRN PRN Reason: Heartburn Magnesium Hydroxide (Milk Of Magnesia 30 Ml Oral.Susp) 30 ml PO DAILY PRN PRN Reason: Constipation Melatonin (Melatonin 3 Mg Tablet) 6 mg PO BEDTIME PRN PRN Reason: Insomnia Sodium Chloride (0.9 % Sodium Chloride Flush 3 Ml Syringe) 3 ml IVFLUSH QSHIFT [facility] Home Medications ?Medication ?Instructions ?Recorded ?Confirmed ?Last Taken ?Type atorvastatin 40 mg tablet 40 mg PO BEDTIME 01/21/24 05/05/25 05/04/25 History diphenhydramine 25 1 tab PO BEDTIME PRN Sleep 05/05/25 05/05/25 Unknown History mg-acetaminophen 500 mg tablet (Tylenol PM Extra Strength) [id number] acid-vit 1 tab PO DAILY 05/05/25 05/05/25 05/05/25 History K-lycop 400 mcg-20 mcg-370 mcg tablet (Men's 50 Plus Daily Formula) Physical Exam Vital Signs and Narrative: Vital Signs: Last Vital Signs Temp 97.8 F 05/05/25 18:12 Pulse 80 05/05/25 18:24 Resp 17 05/05/25 18:24 BP 133/64 05/05/25 18:24 Pulse Ox 98 05/05/25 18:24 O2 Del Method Room Air 05/05/25 18:24 BMI result Body Mass Index 33.0 Gen: Appears be in no acute distress HEENT: NCAT, Moist mucosa. Pulmonary: Vesicular breath sounds, fair air entry CVS: Normal S1-S2 Abdomen: BS+, Soft, Nontender Extremities: Warm well perfused Neuro: Alert and awake. Results Labs 05/06/25 04:24 05/06/25 04:24 Labs: Laboratory Results - last 24 hr 05/05/25 05/05/25 05/05/25 17:26 17:29 17:30 MCV 92.1 MCH 31.7 MCHC 34.4 RDW 14.3 Plt Count 200 MPV 8.8 L Immature Gran % (Auto) 0.2 Neut % (Auto) 75.3 H Lymph % (Auto) 13.8 L [place] % (Auto) 10.3 Eos % (Auto) 0.2 Baso % (Auto) 0.2 Lymph # (Auto) 0.8 L [place] # (Auto) 0.6 Eos # (Auto) 0.0 Baso # (Auto) 0.0 Abs Immat Gran (auto) 0.01 Absolute Neuts (auto) 4.1 Absolute Nucleated RBC 0.000 Nucleated RBC % (auto) 0.0 Hold Purple Top SEE NOTE PT 17.6 H Whole Blood PT 15.8 H INR 1.5 H Whole Blood INR 1.3 H APTT 37.2 H Anion Gap 11 L Estim Creat Clear Calc 96.1 Estimated GFR > 60 POC Glucose 97 Random Glucose 102 Lactic Acid 1.2 Calcium 8.6 Troponin I High Sens 5.6 Triglycerides 44 Cholesterol 133 LDL Cholesterol, Calc 58 HDL Cholesterol 67 Assessment and Plan (1) Acute confusion: Status: Acute Plan 69-year-old male with a past medical history of HTN, HLD, atrial fibrillation on Xarelto; memory deficits; presented to the hospital today with a chief complaint of confusion/word-finding difficulty. Confusion/word-finding difficulty: TIA: Patient mental status improving. Speech also improving as per the daughter. CT head and CT angio head and neck showed no acute findings MRI brain ordered Echocardiogram Telemetry No clear signs of infection; will also obtain folate, B12, TSH, RPR. Neurology consult PT/OT/[employer] evaluation Atrial fibrillation: Patient on Xarelto-on hold for now until MRI is negative. Alcohol use disorder: Per patient's daughter patient drinks about 6 beers per day. Last drink was 2 days prior . monitor on CIWA protocol with Ativan. Folate thiamine Multivitamins. DVT prophylaxis: SubQ heparin Code status: Full code Quality Stroke Does the patient have a stroke diagnosis?: No VTE Prior VTE?: No VTE Risk Level:: Medical - moderate - high VTE Device Contraindication: N/A - Device Ordered VTE Drug Contraindication: Treatment Not Indicated
--- NOTE | 2025-05-05 19:51 | PHA.MEDREC ---
Addendum entered by Trevon Kothari RPh 05/05/25 19:58: med rec reviewed Original Note: Pharmacy Consult ? Medication Reconciliation Pharmacy has completed the medication reconciliation. Spoke to patients son at bedside to confirm med list. Son had a list of patients medications on his phone. Son states patient stopped taking Donepezil 10 mg because it mad patient sick. Patient only had 3 doses before he stopped taking. Patient had all his morning medications today.
[2025-05-05 21:08] VITALS: BP 129/77; PULSE 83; RESP 18; TEMP 37.3; O2SAT 95
[2025-05-05 21:57] LABS: Thyroid Stimulating Hormone 1.54 uIU/mL (0.32-4.0)
[2025-05-05 22:10] LABS: Folate 14.1 ng/mL (> or = 4.0); Vitamin B12 625 pg/mL (200-900)
[2025-05-06] VITALS (9 sets, daily range): BP systolic 120–137; BP diastolic 55–83; PULSE 75–101; RESP 15–28; TEMP 36.5–36.9; O2SAT 96–99; BMI 32.8
--- NOTE | 2025-05-06 | EEG_ITS ---
Reason for Exam: Altered mental status R41.82 Roomed Performed: 1 st floor History: H/O OSS on CPAPA, and typical atrial flutter -Family has noticed a decline in his memory and difficulty speaking with confusion over the last few months since his - CT, CTA, MRI of brain did not reveal any acute pathology or significant lesion- pt drinks a six pack a day Medication:acetaminophen, atorvastatin calcium, calcium, MOM, melatonin, metoprolol succinate, vit c, rivaroxaba Technical description: Photic stimulation: Completed Hyperventilation: Omitted Behavioral state: tense, altered, intermittent shaking was noted State of Consciousness: awake Skull defect: No Sedation: No Handedness: Right Duration of study: 31 min 57 sec Description: This is a 16 channel EEG with an EKG lead. Patient is reported awake during the tracing. Background EEG rhythm is mostly in theta range medium amplitude with no obvious asymmetry or paroxysmal tendency. Some lead and muscle artifacts are noted. Eye closure opening artifacts are noted. Photic stimulation does not produce any significant abnormality. Hyperventilation is not performed. Cardiac lead does not reveal any significant abnormality. No sharp wave spikes or paroxysmal tendency noted. Impression: Generalized slowing with no evidence of seizure disorder MTDD
[2025-05-06] MEDS: 0.9 % Sodium Chloride Flush 3 ML SYRINGE IVFLUSH ×3 (01:05→18:01)
[2025-05-06 05:18] LABS: MANUAL DIFF FLAG NO
[2025-05-06 05:20] LABS: Hematocrit 33.5 % (42.0-52.0); Hemoglobin 11.7 g/dl (14.0-18.0); Imm Gran Abs Auto 0.01 X10*3/uL (0.00-0.03); Imm Gran Pct Auto 0.2 % (0.0-0.4); Lymphocytes Absolute Auto 0.7 X10*3/uL (1.2-4.9); Mean Corpuscular HGB Conc 34.9 g/dl (31.0-36.0); Mean Corpuscular Hemoglobin 32.3 pg (27.0-33.0); Mean Corpuscular Volume 92.5 fL (80.0-98.0); NRBC Abs Auto 0.000 X10*3/uL (0.0-0.012); NRBC Pct Auto 0.0 /100WBC (0.0-0.2); Platelet Count 198 X10*3/uL (160-400); Red Blood Count 3.62 X10*6/uL (4.60-5.80); White Blood Count 4.7 X10*3/uL (4.8-10.8)
[2025-05-06 06:26] LABS: Alanine Aminotransferase 19 U/L (0-40); Albumin Level 3.7 g/dL (3.5-5.0); Alkaline Phosphatase 47 U/L (39-117); Anion Gap 14 (12-20); Aspartate Amino Transferase 29 U/L (5-37); Blood Urea Nitrogen 9 mg/dL (9-16); Calcium 8.6 mg/dL (8.4-10.2); Carbon Dioxide 24 mmol/L (22-29); Chloride 103 mmol/L (96-108); Cholesterol 117 mg/dL (<200); Creatinine Clr Calc Pharmacy 108.1; Estimated Glomerular Filt Rate > 60; HDL Cholesterol 57 mg/dL (>40); Potassium 4.5 mmol/L (3.3-5.1); Sodium 136 mmol/L (135-145); Total Protein 6.3 g/dL (6.5-8.0); Triglycerides 36 mg/dL (<150)
--- NOTE | 2025-05-06 07:00 | CA_ITS ---
Transthoracic Echocardiogram Patient (Last, First, Middle): Kash Cruz, Gender: Male Date of : 1955 Age: 69 Procedure Date: 05/06/2025 Procedure Type: Transthoracic Echocardiogram Location: ER Height: 170.18 cm Weight: 95.26 kg BSA: 2.06 m2 Heart Rate: bpm BP: 127 / 58 mmHg Hearing Screener: ABE/RHODA Referring MD: Apollo Driscoll MD Hogshead Wrecker: Osmin Davis MD Symptoms: tia Study Quality: Technically Difficult ECG Rhythm: Atrial Fibrillation Conclusions: - 1. Technically difficult study 2. LV ejection fraction in his normal on this study with LVEF 60 65% 3. At least moderately dilated left atrium 4. Limited visualization of cardiac valves with normal cardiac valvular Dopplers Findings Procedure Information Contrast agent, definity, is being given per protocol without apparent complications. Left Ventricle Normal left ventricular size, thickness, and systolic function. The visually estimated ejection fraction is between 60-65%. Diastolic function is indeterminate on the basis of available data. Right Ventricle The right ventricle was not well visualized. There is borderline right ventricular systolic function. Atria The left atrium is moderately dilated. Interatrial shunt cannot be excluded. The right atrium was not well visualized. Aortic Valve The aortic valve was not well visualized. There is no aortic valve stenosis. There is no aortic valve regurgitation. Mitral Valve The mitral valve was not well visualized. There is no mitral valve stenosis. Pulmonic Valve The pulmonic valve was not well visualized. Tricuspid Valve The tricuspid valve was not well visualized. Tricuspid regurgitation envelope is inadequate for calculation of right ventricular systolic pressure. Normal right atrial pressure. Great Vessels The aorta was not well visualized. The pulmonary artery was not well visualized. Venous The inferior vena cava is normal in size and collapses greater than 50% with inspiration. Pericardium/Pleural The pericardium was not well visualized. Prior Study Comparison No significant change compared to prior study dated: 10/15/2023. Measurements 2D Linear Measurements IVSd: 1.09 0.6-0.9/0.6-1.0 cm LVIDd: 5.00 3.9-5.3/4.2-5.9 cm LVIDd Index: 2.43 2.4-3.2/2.2-3.1 cm/m2 LVIDs: 3.58 2.0-3.6 cm LVPWd: 0.99 0.7-1.1 cm LA Diam: 5.60 2.7-3.8/3.0-4.0 cm LAIDs Index: 2.72 1.5-2.3 cm/m2 LV Mass: 238.78 67-162/88-224 g LV Mass Index: 115.91 43-95/49-115 g/m2 LVOT Diam: 2.10 3.0+(-)1.3 cm 2D Systolic Function EF 4C: 64.40 >55% EF 2C: 59.20 >55% EF BiP: 61.50 >55% Mitral Valve MV Pk E: 1.04 MV Decel Time: 215.00 E'Lateral: 12.00 E'Medial: 12.40 E/E' Med: 8.40 E/E' Lat: 8.70 PHT: 63.00 MVA PHT: 3.49 Decel Divide: 4.89 Aortic Valve AoV Pk Frank: 1.33 AoV Mn Frank: 0.96 AoV VTI: 0.29 AoV Pk Grad: 7.00 Aov Mn Grad: 4.00 KEO Cont.VTI: 2.42 LVOT LVOT Pk Frank: 0.96 LVOT Mn Frank: 0.68 LVOT VTI: 0.20 LVOT Pk Grad: 4.00 LVOT Mn Grad: 2.00 LVOT Diam: 2.10 LVOT Area: 3.46 Diastolic Function MV Pk E: 1.04 E'Medial: 12.40 E/E' Med: 8.40 E' Laterial: 12.00 E/E' Lat: 8.70 Right Ventricle TAPSE (mm): 17.90 TVS' Frank: 10.20 Tricuspid Valve RA Press: 3.00 Great Vessels Aorta Sinus of Valsalva: 3.96 2.0-3.5 cm Updated in Other Vendor System with Status of Final Osmin Davis MD electronically signed on 05/06/2025 11:41:55 AM with status of Final
[2025-05-06 07:34] LABS: Syphilis Screen Nonreactive (Nonreactive)
[2025-05-06] MEDS: Metoprolol Succinate ER 25 MG TAB.ER.24H PO (08:01)
--- NOTE | 2025-05-06 10:31 | HO.PM.IMPN ---
Subjective Subjective Date of Service: 05/06/25 Interval History: back to baseline Physical Exam Exam: Exam: General: AO X 3, no acute distress Resp: CTA bilateral, no accessory muscles used CVS: S1,S2,RRR GI: soft, non tender, non distended Neuro: motor grossly intact, alert Psych: appropriate affect, appropriate insight Vital Signs: Vital Signs: Last Vital Signs Temp 99.1 F 05/05/25 21:08 Pulse 82 05/06/25 07:58 Resp 18 05/06/25 07:58 BP 124/73 05/06/25 07:58 Pulse Ox 98 05/06/25 07:58 O2 Del Method Room Air 05/06/25 07:58 BMI result Body Mass Index 33.0 Objective Data Active Medications Acetaminophen (Acetaminophen 325 Mg Tablet) 650 mg PO Q6H PRN PRN Reason: Pain, Mild 1-3,fever,headache Atorvastatin Calcium (Atorvastatin Calcium 80 Mg Tablet) 80 mg PO DAILY [facility] Last Admin: 05/06/25 08:01 Dose: 80 mg Documented By: EDDIE Calcium Carbonate (Calcium Carbonate 750 Mg Tab.Chew) 750 mg PO Q4H PRN PRN Reason: Heartburn Magnesium Hydroxide (Milk Of Magnesia 30 Ml Oral.Susp) 30 ml PO DAILY PRN PRN Reason: Constipation Melatonin (Melatonin 3 Mg Tablet) 6 mg PO BEDTIME PRN PRN Reason: Insomnia Metoprolol Succinate (Metoprolol Succinate Er 25 Mg Tab.Er.24h) 25 mg PO DAILY [facility]; Protocol Last Admin: 05/06/25 08:01 Dose: 25 mg Documented By: EDDIE Multivitamins/Vitamin C (Multivitamin Tablet) 1 tab PO DAILY [facility] Last Admin: 05/06/25 08:01 Dose: 1 tab Documented By: EDDIE Rivaroxaban (Rivaroxaban 20 Mg Tablet) 20 mg PO DAILY [facility] Last Admin: 05/06/25 09:04 Dose: 20 mg Documented By: EDDIE Sodium Chloride (0.9 % Sodium Chloride Flush 3 Ml Syringe) 3 ml IVFLUSH QSHIFT [facility] Last Admin: 05/06/25 08:00 Dose: 3 ml Documented By: EDDIE Labs 05/06/25 04:24 05/06/25 04:24 Labs: Laboratory Results - last 24 hr 05/05/25 05/05/25 05/05/25 17:26 17:29 17:30 MCV 92.1 MCH 31.7 MCHC 34.4 RDW 14.3 Plt Count 200 MPV 8.8 L Immature Gran % (Auto) 0.2 Neut % (Auto) 75.3 H Lymph % (Auto) 13.8 L Crawford % (Auto) 10.3 Eos % (Auto) 0.2 Baso % (Auto) 0.2 Lymph # (Auto) 0.8 L Crawford # (Auto) 0.6 Eos # (Auto) 0.0 Baso # (Auto) 0.0 Abs Immat Gran (auto) 0.01 Absolute Neuts (auto) 4.1 Absolute Nucleated RBC 0.000 Nucleated RBC % (auto) 0.0 Hold Purple Top SEE NOTE PT 17.6 H Whole Blood PT 15.8 H INR 1.5 H Whole Blood INR 1.3 H APTT 37.2 H Anion Gap 11 L Estim Creat Clear Calc 96.1 Estimated GFR > 60 POC Glucose 97 Random Glucose 102 Lactic Acid 1.2 Calcium 8.6 Total Bilirubin AST ALT Alkaline Phosphatase Troponin I High Sens 5.6 Total Protein Albumin Triglycerides 44 Cholesterol 133 LDL Cholesterol, Calc 58 HDL Cholesterol 67 Vitamin B12 Folate TSH Urine Color Urine Appearance Urine pH Ur Specific Leslie Urine Protein Urine Glucose (UA) Urine Ketones Urine Blood Urine Nitrite Ur Leukocyte Esterase T.pallidum Ab (EIA) 05/05/25 05/05/25 05/06/25 19:02 21:12 04:24 MCV 92.5 MCH 32.3 MCHC 34.9 RDW 14.4 Plt Count 198 MPV 9.0 L Immature Gran % (Auto) 0.2 Neut % (Auto) 71.8 Lymph % (Auto) 15.3 L Crawford % (Auto) 12.1 H Eos % (Auto) 0.4 Baso % (Auto) 0.2 Lymph # (Auto) 0.7 L Crawford # (Auto) 0.6 Eos # (Auto) 0.0 Baso # (Auto) 0.0 Abs Immat Gran (auto) 0.01 Absolute Neuts (auto) 3.4 Absolute Nucleated RBC 0.000 Nucleated RBC % (auto) 0.0 Hold Purple Top PT Whole Blood PT INR Whole Blood INR APTT Anion Gap 14 Estim Creat Clear Calc 108.1 Estimated GFR > 60 POC Glucose Random Glucose 100 Lactic Acid Calcium 8.6 Total Bilirubin 0.5 AST 29 ALT 19 Alkaline Phosphatase 47 Troponin I High Sens Total Protein 6.3 L Albumin 3.7 Triglycerides 36 Cholesterol 117 LDL Cholesterol, Calc 53 HDL Cholesterol 57 Vitamin B12 625 Folate 14.1 TSH 1.54 Urine Color Yellow Urine Appearance Clear Urine pH 6.5 Ur Specific Leslie >= 1.030 H Urine Protein Negative Urine Glucose (UA) Negative Urine Ketones 15 Urine Blood Negative Urine Nitrite Negative Ur Leukocyte Esterase Negative T.pallidum Ab (EIA) Nonreactive Assessment and Plan (1) Transient cerebral ischemia: Status: Acute Plan 69M PMH hypertension, hyperlipidemia, paroxysmal AFib on Xarelto, memory deficits presented with confusion and word-finding difficulty Confusion/word-finding difficulty Differential includes TIA versus dementia MRI negative, follow up echo and neuro Paroxysmal AFib Xarelto DVT prophylaxis-Xarelto Full code reason for continued hospitalization: Awaiting neuro eval and echo Quality Stroke Does the patient have a stroke diagnosis?: No VTE Prior VTE?: No VTE Risk Level:: Medical - moderate - high VTE Device Contraindication: N/A - Device Ordered VTE Drug Contraindication: Treatment Not Indicated
--- NOTE | 2025-05-06 10:46 | PC.NURSE ---
Pt is alert/oriented to self. Denies pain. Neuros are intact, Word finding issues not appreciated at this time however pt is slow to respond to questions asked. Appears more confused than anything. Family at bedside intermittently. Had ECHO completed and Neuro consult. Suggested recliner for positional change, at bedside for when pt chooses to transfer. NSR on tele. Breathing even and unlabored. Skin pwd.
--- NOTE | 2025-05-06 12:09 | PM.NEUROCN ---
History of Present Illness Data of Consult Service Date: 05/06/25 Primary Care Provider: Néstor Busch MD HPI Reason for consult: Confusion and word-finding difficulty 69 years old man came to hospital with forgetfulness and difficulty speaking. When I asked him if that was the case, he said that he would not describe it that way. His daughter stated that his few months ago and he got worse. He was somewhat hesitant to talk about his problem. He was also having somewhat less fluent speech and when I asked him if that was the problem, he was not sure. It was not clear if this problem was continuous or was happening in an episodic fashion. He had a head CT and then CTA of brain and neck and then also an MRI of brain not revealing any acute pathology or significant lesion to explain his symptoms. His laboratories did not reveal any infection and he was not febrile. He said that he was drinking about 6 packs a day. Review of Systems Review of Systems: Constitutional:?No fever, chills, fatigue, weight loss, or night sweats. HEENT:?No headache, vision changes, hearing loss, nasal congestion, sore throat. Cardiovascular:?No chest pain, palpitations, orthopnea, PND, or leg swelling. Respiratory:?No cough, shortness of breath, wheezing, or hemoptysis. Gastrointestinal:?No nausea, vomiting, abdominal pain, diarrhea, or constipation. Genitourinary:?No dysuria, frequency, incontinence, or hematuria. Musculoskeletal:?No joint pain, stiffness, weakness, or muscle aches. Neurological:? Complain of word-finding difficulty and memory problems Psychiatric:?No anxiety, depression, mood swings, sleep disturbance, or hallucinations. Endocrine:?No heat/cold intolerance, polydipsia, polyuria, or hair/skin changes. Hematologic/Lymphatic:?No easy bruising, bleeding, or lymphadenopathy. Integumentary (Skin):?No rash, lesions, itching, or color changes. Allergic/Immunologic:?No seasonal allergies, hives, or recurrent infections. [facility] Past Medical History Medical History DARRIAN on CPAP Typical atrial flutter Family History Family History Mother No problems noted. Father Heart problem Surgical History Surgical History Total knee replacement status Social History Social History Alcohol intake: current Alcohol intake frequency: 3 or more drinks per day Alcohol type: beer Patient Tobacco Use Status: Never used Tobacco Smoked in Last 30 Days: No Use of substances other than those prescribed or required for medical reasons: No Advance Directives: No Advance Directives Information Provided: No Do you have a plan to hurt others: No Plan Meds Allergies Allergy/AdvReac Type Severity Reaction Status Date / Time No Known Allergies Allergy Verified 05/05/25 17:19 Active Medications: Current Medications Acetaminophen (Acetaminophen 325 Mg Tablet) 650 mg PO Q6H PRN PRN Reason: Pain, Mild 1-3,fever,headache Atorvastatin Calcium (Atorvastatin Calcium 80 Mg Tablet) 80 mg PO DAILY [facility] Last Admin: 05/06/25 08:01 Dose: 80 mg Calcium Carbonate (Calcium Carbonate 750 Mg Tab.Chew) 750 mg PO Q4H PRN PRN Reason: Heartburn Magnesium Hydroxide (Milk Of Magnesia 30 Ml Oral.Susp) 30 ml PO DAILY PRN PRN Reason: Constipation Melatonin (Melatonin 3 Mg Tablet) 6 mg PO BEDTIME PRN PRN Reason: Insomnia Metoprolol Succinate (Metoprolol Succinate Er 25 Mg Tab.Er.24h) 25 mg PO DAILY [facility]; Protocol Last Admin: 05/06/25 08:01 Dose: 25 mg Multivitamins/Vitamin C (Multivitamin Tablet) 1 tab PO DAILY [facility] Last Admin: 05/06/25 08:01 Dose: 1 tab Rivaroxaban (Rivaroxaban 20 Mg Tablet) 20 mg PO DAILY [facility] Last Admin: 05/06/25 09:04 Dose: 20 mg Sodium Chloride (0.9 % Sodium Chloride Flush 3 Ml Syringe) 3 ml IVFLUSH QSHIFT [facility] Last Admin: 05/06/25 08:00 Dose: 3 ml Home Medications ?Medication ?Instructions ?Recorded ?Confirmed ?Last Taken ?Type atorvastatin 40 mg tablet 40 mg PO BEDTIME 01/21/24 05/05/25 05/04/25 History diphenhydramine 25 1 tab PO BEDTIME PRN Sleep 05/05/25 05/05/25 Unknown History mg-acetaminophen 500 mg tablet (Tylenol PM Extra Strength) [id number] acid-vit 1 tab PO DAILY 05/05/25 05/05/25 05/05/25 History K-lycop 400 mcg-20 mcg-370 mcg tablet (Men's 50 Plus Daily Formula) Physical Exam Vital Signs: Vital Signs: Last Vital Signs Temp 99.1 F 05/05/25 21:08 Pulse 82 05/06/25 07:58 Resp 18 05/06/25 07:58 BP 124/73 05/06/25 07:58 Pulse Ox 98 05/06/25 07:58 O2 Del Method Room Air 05/06/25 07:58 BMI result Body Mass Index 33.0 Neuro: Other: Mental Status: He is alert and awake with decreased spontaneity and fluency of speech. Affect is wake. He has following simple commands. He knew what was going on. Cranial Nerves: CN II: Visual ramires full to confrontation, visual acuity intact. CN III, IV, : Pupils equal, round, reactive to light and accommodation. Extraocular movements are normal. CN V: Facial sensation is normal. CN VII: Facial movements symmetrical. CN VIII: Hearing intact to bedside conversation is normal. CN IX, X: Palate elevates symmetrically. CN XI: Shoulder shrug and head turn symmetrical. CN XII: Tongue midline without atrophy or fasciculations. Motor: Deep tendon reflexes are trace to absent with flexor plantars. Extrapyramidal: Full facial expressions and blinking. No rigidity. Movements are appropriate with no tremor or abnormality. Speech: Normal; no dysarthria or tremor. Results Labs 05/06/25 04:24 05/06/25 04:24 Labs: Short CBC 05/05/25 05/06/25 Range/Units 17:30 04:24 WBC 5.4 4.7 L (4.8-10.8) X10*3/uL Hgb 12.5 L 11.7 L (14.0-18.0) g/dl Hct 36.3 L 33.5 L (42.0-52.0) % Plt Count 200 198 (160-400) X10*3/uL BMP 05/05/25 05/06/25 17:30 04:24 Sodium 134 L 136 Potassium 4.3 4.5 Chloride 102 103 Carbon Dioxide 25 24 BUN 13 9 Creatinine 0.81 0.72 Calcium 8.6 8.6 Liver Function 05/06/25 Range/Units 04:24 Total Bilirubin 0.5 (0.0-1.0) mg/dL AST 29 (5-37) U/L ALT 19 (0-40) U/L Alkaline Phosphatase 47 (39-117) U/L Albumin 3.7 (3.5-5.0) g/dL Urine 05/05/25 Range/Units 19:02 Urine Color Yellow Urine Appearance Clear Urine pH 6.5 (5.0-9.0) Ur Specific Minter >= 1.030 H (1.005-1.025) Urine Protein Negative (Neg-Trace) mg/dL Urine Glucose (UA) Negative (Negative) mg/dL His CAT scan of brain, MRI of brain and CTA of brain and neck were reviewed. No significant abnormality was noted. Assessment and Plan (1) Cognitive and behavioral changes: Status: Acute Probably multifactorial cognitive and behavioral changes. It was probably combination of depression after his 's , alcohol use, with possibility of seizure disorder and degenerative dementia. My recommendations are to obtain an EEG, and start him on an antidepressant. Alcohol withdrawal precautions should also be taken with treatment with thiamine and folate. Procedures Date of Service Date of Service: 05/06/25
--- NOTE | 2025-05-06 12:29 | MHC.CM.PN ---
CM met with Patient and his Sister/Umu at bedside, in the ED and addressed IMM with him, providing him with the original and a copy will be placed on the chart. Patient lives alone in a house and was functionally independent [employer]. PT is recommending Acute Rehab ad Patient has agreed to referrals being made to the 3 area Acute Rehabs. CM has initiated and will follow for dc planning. PCP is Dr. Néstor Busch and Patient will require BLS transport at dc. Daughter/Sunni is the HCP.
--- NOTE | 2025-05-06 13:51 | MHC.SP.ADU ---
Referring provider: Dr. Driscoll Reason for Referral: Speech/Language/Cognitive evaluation Type of Treatment: 93963 Evaluation Speech Sound Production WITH Language Date of Plan of Treatment: 05/06/25 Onset of Symptoms/Illness: 05/05/25 Date Treatment Started: 05/06/25 Medical Diagnosis: Acute confusion; Transient cerebral ischemia Primary Speech Language Diagnosis: R41.841 Cognitive communication disorder Secondary Speech Language Diagnosis: R47.01 Aphasia History Patient is a 69 year old man who presented to the hospital today with a chief complaint of confusion/word-finding difficulty. Patient's sister reported to this racebook writer that patient had started having word finding difficulty beginning a few days ago, but then had escalating confusion, with her brother finding him yesterday highly confused, talking about his job which has been retired from for many years, speech at times had garbled words and he was in disarray. Patient is a former Registered Public Health Nurse. Medical History: Other: HTN, HLD, atrial fibrillation on Xarelto; memory deficits; DARRIAN Medication List: Recent Hospitalizations: No Respiratory Needs: Room Air Patient Orientation: Disoriented Social History: Employment Status: Retired Highest level of education obtained: Unknown/Unable to report Current Living Situation: Patient lives alone in a private residence. Patient's recently. Patient's children and siblings are involved, visit often. Assistive Devices in use: Glasses/Contacts Comment: Past Speech Language Therapy: None Other Therapies Seen in Current Calendar Year: Other: Assessment Speech Production: Aphasic: Fluent Clinical Impression: Impaired Observations: In connected speech, patient has periodic paraphasia's, struggles at times with multisyllabic words (out of sequence). On this evaluation, patient was able to produce multisyllabic words in repetition, but miss-ordered syllables when reading. Patient when reading a short paragraph, also produced garbled words. Tests of Speech & Lang Adults: BDAE BNT Clinical Impression: Impaired Observations: Observation: Patient notably performed better on structured langauge testing, but in spontaneous conversation produced a word salad, jumped from topic to topic, had paraphasias (garbled words), and press for speech (e.g. no hesitancies, search for words). Patient was given the short form of the BNT: Patient identified 13/15 items. Had occasional paraphasia: e.g. Curinu for unicorn. On the Cookie Theft narrative of the BDAE: Patient was able to mostly describe the pictured story, with some occasional hesitencies for word finding (e.g. hesitated before finding the word cookie. ) and organizing some longer descriptive information the sink is overflowing. On auditory word descrimination: 100% accuracy. In conversation, e.g. asked why are you here? What happened? Patient became confused, struggled to explain, looked to sister. Patient noted I have no trouble talking to a little kid. 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 As topic jumping continued, there was press for speech, occasional garbled words, poor self monitoring of what he was saying/talking about. Sister noted this behavior is significant change from baseline. Impressions and Recommendations Summary: Patient is presenting with moderate expressive language disorder, and new onset cognitive communication disorder. Patient has a press for speech, evidences paraphasias in his spontaneous speech (garbled words), is poorly monitoring his speech (disorganized, jumps topics, talks at length). Patient is confused, very distractible. He was able to attend to structured activities completed in this evaluation, but could be easily distracted and lost track at times of what he was doing. Patient's sister reports this is significant change from baseline. Impact on Daily Function/Activity Limitations: Daily Activities: Severe Interpersonal Interactions: Severe Community: Severe Prognosis for Improvement: Guarded Recommendation for Speech Therapy: Inpatient Speech Therapy Speech Therapy through Rehab Facility Recommended Referrals to be Discussed with Primary Care Provider: Neuropsychological Eval Patient Education: Completed: Yes Patient/Caregiver Education: Family/Caregivers expressed understanding of results Family/Caregivers expressed agreement with goals and treatment plan Comments/Barriers to Learning: Commercial Loan Officer Clinican/Clinical Fellow: No Supervisory Statement: N/A Speech Language Pathologist: Namrata Reagan M.A., CCC-CALL CENTER MANAGER
--- NOTE | 2025-05-06 14:03 | PC.NURSE ---
Out of room for EEG at this time
[2025-05-07 03:07] VITALS: BP 124/60; PULSE 84; RESP 18; TEMP 36.6; O2SAT 96
[2025-05-07 08:00] VITALS: BP 137/74; PULSE 62; RESP 18; TEMP 36.2; O2SAT 98
[2025-05-07] MEDS: 0.9 % Sodium Chloride Flush 3 ML SYRINGE IVFLUSH ×3 (09:33→22:02)
[2025-05-07] MEDS: Metoprolol Succinate ER 25 MG TAB.ER.24H PO (09:46)
--- NOTE | 2025-05-07 10:30 | HO.PM.IMPN ---
Subjective Subjective Date of Service: 05/07/25 Interval History: weak, tired Physical Exam Exam: Exam: Lethargic, oriented X 2, tremulous, ill-appearing Vital Signs: Vital Signs: Last Vital Signs Temp 97.1 F 05/07/25 08:00 Pulse 62 05/07/25 08:00 Resp 18 05/07/25 08:00 BP 137/74 05/07/25 08:00 Pulse Ox 98 05/07/25 08:00 O2 Del Method Room Air 05/07/25 08:00 BMI result Body Mass Index 32.8 Objective Data Active Medications Acetaminophen (Acetaminophen 325 Mg Tablet) 650 mg PO Q6H PRN PRN Reason: Pain, Mild 1-3,fever,headache Atorvastatin Calcium (Atorvastatin Calcium 80 Mg Tablet) 80 mg PO DAILY [facility] Last Admin: 05/07/25 09:28 Dose: 80 mg Documented By: ABIGAIL Calcium Carbonate (Calcium Carbonate 750 Mg Tab.Chew) 750 mg PO Q4H PRN PRN Reason: Heartburn Folic Acid (Folic Acid 1 Mg Tablet) 1 mg PO DAILY [facility] Stop: 05/10/25 08:59 Last Admin: 05/07/25 09:46 Dose: 1 mg Documented By: ABIGAIL Lorazepam (Lorazepam 1 Mg Tablet) 1 mg PO Q4H PRN PRN Reason: Breakthrough alcohol withdrawa Stop: 05/10/25 20:12 Lorazepam (Lorazepam 1 Mg Tablet) 1 mg PO Q4H [facility]; Taper Stop: 05/10/25 22:14 Last Admin: 05/07/25 09:28 Dose: 1 mg Documented By: ABIGAIL Magnesium Hydroxide (Milk Of Magnesia 30 Ml Oral.Susp) 30 ml PO DAILY PRN PRN Reason: Constipation Melatonin (Melatonin 3 Mg Tablet) 6 mg PO BEDTIME PRN PRN Reason: Insomnia Metoprolol Succinate (Metoprolol Succinate Er 25 Mg Tab.Er.24h) 25 mg PO DAILY [facility]; Protocol Last Admin: 05/07/25 09:46 Dose: 25 mg Documented By: ABIGAIL Multivitamins/Vitamin C (Multivitamin Tablet) 1 tab PO DAILY [facility] Last Admin: 05/07/25 09:29 Dose: 1 tab Documented By: ABIGAIL Omeprazole (Omeprazole 20 Mg Capsule.Dr) 20 mg PO DAILY@0630 [facility] Last Admin: 05/07/25 06:14 Dose: 20 mg Documented By: KELSEY Rivaroxaban (Rivaroxaban 20 Mg Tablet) 20 mg PO DAILY [facility] Last Admin: 05/07/25 09:45 Dose: 20 mg Documented By: ABIGAIL Sodium Chloride (0.9 % Sodium Chloride Flush 3 Ml Syringe) 3 ml IVFLUSH QSHIFT [facility] Last Admin: 05/07/25 09:33 Dose: 3 ml Documented By: ABIGAIL Thiamine HCl (Thiamine Hcl 100 Mg Tablet) 100 mg PO DAILY [facility] Stop: 05/10/25 08:59 Last Admin: 05/07/25 09:28 Dose: 100 mg Documented By: ABIGAIL Labs 05/06/25 04:24 05/06/25 04:24 Assessment and Plan (1) Cognitive and behavioral changes: Status: Acute (2) Transient cerebral ischemia: Status: Acute Plan 69M PMH hypertension, hyperlipidemia, paroxysmal AFib on Xarelto, alcohol dependence, memory deficits presented with confusion and word-finding difficulty Confusion/word-finding difficulty MRI negative, TIA/CVA ruled out Neuro appreciated EEG negative Likely cognitive impairment due to alcohol use Alcohol dependence with withdrawal Ativan p.o., monitor Vitamin supplement Paroxysmal AFib Xarelto DVT prophylaxis-Xarelto Full code reason for continued hospitalization: Active withdrawal Quality Stroke Does the patient have a stroke diagnosis?: No VTE Prior VTE?: No VTE Risk Level:: Medical - moderate - high VTE Device Contraindication: N/A - Device Ordered VTE Drug Contraindication: Treatment Not Indicated
[2025-05-07 12:00] VITALS: BP 111/61; PULSE 86; RESP 20; TEMP 36.8; O2SAT 100
--- NOTE | 2025-05-07 12:27 | MHC.CM.PN ---
Addendum entered by Devi Pineda 05/07/25 15:41: THIS CM PLACED A CALL TO PTS DAUGHTER/HCP SHWETA TO UPDATE HER ON THE DISCHARGE PLANS. Addendum entered by Devi Pineda 05/07/25 15:31: THIS CM MET WITH PT AND HIS SISTER PRESENT AT BEDSIDE TO DISCUSS THE DISCHARGE PLAN. THERE ARE NO CURRENT ACUTE REHAB BED OFFERS. [facility] HAVE DECLINED DUE TO PT NOT MEETING ADMISSION CRITERIA, AND [facility] IS FOLLOWING. THIS CM PRINTED A LIST OF SNF'S FROM [facility] TO GIVE TO THE PT AND HIS FAMILY TO REVIEW, HE MAY NOT BE ACCEPTED INTO ACUTE REHAB. PTS SISTER PRESENT AT BEDSIDE STATES SHE WOULD LIKE US TO TRY TO GET HIM INTO [facility] ACUTE REHAB. Original Note: EMR REVIEWED AND PER MD ROUNDS, PT IS NOT MEDICALLY CLEARED FOR DISCHARGE DUE TO MANAGEMENT OF ETOH WITHDRAWAL.
[2025-05-07 16:00] VITALS: BP 143/76; PULSE 82; RESP 18; TEMP 37.1; O2SAT 98
[2025-05-07 20:00] VITALS: BP 97/65; PULSE 87; RESP 20; TEMP 37.1; O2SAT 97
[2025-05-07] MEDS: diazePAM 10 MG/2 ML CARTRIDGE 5 MG IVPUSH (23:08)
[2025-05-08] VITALS: BP 133/73; PULSE 80; RESP 18; TEMP 36.2; O2SAT 97
[2025-05-08 06:28] VITALS: BP 131/76; PULSE 87; RESP 18; TEMP 36.3; O2SAT 98
[2025-05-08 07:09] LABS: VBG HCO3 26 mmol/L (22-26); VBG O2 % Saturation 68.0 %
[2025-05-08 07:14] LABS: Venous Blood Gas Refer to POC result
[2025-05-08 07:15] LABS: Hematocrit 39.0 % (42.0-52.0); Hemoglobin 13.1 g/dl (14.0-18.0); Mean Corpuscular HGB Conc 33.6 g/dl (31.0-36.0); Mean Corpuscular Hemoglobin 31.2 pg (27.0-33.0); Mean Corpuscular Volume 92.9 fL (80.0-98.0); NRBC Abs Auto 0.000 X10*3/uL (0.0-0.012); NRBC Pct Auto 0.0 /100WBC (0.0-0.2); Platelet Count 199 X10*3/uL (160-400); Red Blood Count 4.20 X10*6/uL (4.60-5.80); White Blood Count 5.3 X10*3/uL (4.8-10.8)
[2025-05-08 07:23] LABS: Ammonia 27 umol/L (13-55)
[2025-05-08 07:31] LABS: Alanine Aminotransferase 18 U/L (0-40); Albumin Level 3.7 g/dL (3.5-5.0); Alkaline Phosphatase 51 U/L (39-117); Anion Gap 12 (12-20); Aspartate Amino Transferase 35 U/L (5-37); Blood Urea Nitrogen 9 mg/dL (9-16); Calcium 8.5 mg/dL (8.4-10.2); Carbon Dioxide 24 mmol/L (22-29); Chloride 105 mmol/L (96-108); Creatinine Clr Calc Pharmacy 125.3; Estimated Glomerular Filt Rate > 60; Magnesium 2.1 mg/dL (1.6-2.6); Potassium 4.0 mmol/L (3.3-5.1); Sodium 137 mmol/L (135-145); Total Protein 6.5 g/dL (6.5-8.0)
[2025-05-08 07:35] VITALS: BP 127/71; PULSE 84; RESP 18; TEMP 36.6; O2SAT 93
[2025-05-08] MEDS: Milk of Magnesia 30 ML ORAL.SUSP PO (10:22)
[2025-05-08] MEDS: Metoprolol Succinate ER 25 MG TAB.ER.24H PO (10:26)
--- NOTE | 2025-05-08 10:36 | P.PNIM_ITS ---
Subjective Subjective Date of Service: 05/08/25 Interval History: weak, tired Physical Exam 2 Exam: Exam: General: AO X 2, no acute distress Resp: CTA bilateral, no accessory muscles used CVS: S1,S2,RRR GI: soft, non tender, non distended Vital Signs: Vital Signs: Last Vital Signs Temp 97.8 F 05/08/25 07:35 Pulse 84 05/08/25 07:35 Resp 18 05/08/25 07:35 BP 127/71 05/08/25 07:35 Pulse Ox 93 05/08/25 07:35 O2 Del Method Room Air 05/08/25 07:35 BMI result Body Mass Index 32.8 Objective Data Active Medications Acetaminophen (Acetaminophen 325 Mg Tablet) 650 mg PO Q6H PRN PRN Reason: Pain, Mild 1-3,fever,headache Atorvastatin Calcium (Atorvastatin Calcium 80 Mg Tablet) 80 mg PO DAILY [facility] Last Admin: 05/07/25 09:28 Dose: 80 mg Documented By: ABIGAIL Calcium Carbonate (Calcium Carbonate 750 Mg Tab.Chew) 750 mg PO Q4H PRN PRN Reason: Heartburn Folic Acid (Folic Acid 1 Mg Tablet) 1 mg PO DAILY [facility] Stop: 05/10/25 08:59 Last Admin: 05/07/25 09:46 Dose: 1 mg Documented By: ABIGAIL Lorazepam (Lorazepam 1 Mg Tablet) 1 mg PO Q4H PRN PRN Reason: Breakthrough alcohol withdrawa Stop: 05/10/25 20:12 Lorazepam (Lorazepam 1 Mg Tablet) 1 mg PO Q6H [facility]; Taper Stop: 05/10/25 22:14 Last Admin: 05/08/25 04:22 Dose: Not Given Documented By: RAKESH Non-Admin Reason: Patient Refused Magnesium Hydroxide (Milk Of Magnesia 30 Ml Oral.Susp) 30 ml PO DAILY PRN PRN Reason: Constipation Melatonin (Melatonin 3 Mg Tablet) 6 mg PO BEDTIME PRN PRN Reason: Insomnia Metoprolol Succinate (Metoprolol Succinate Er 25 Mg Tab.Er.24h) 25 mg PO DAILY [facility]; Protocol Last Admin: 05/07/25 09:46 Dose: 25 mg Documented By: ABIGAIL Multivitamins/Vitamin C (Multivitamin Tablet) 1 tab PO DAILY [facility] Last Admin: 05/07/25 09:29 Dose: 1 tab Documented By: ABIGAIL Omeprazole (Omeprazole 20 Mg Capsule.Dr) 20 mg PO DAILY@0630 [facility] Last Admin: 05/08/25 06:30 Dose: 20 mg Documented By: RAKESH Rivaroxaban (Rivaroxaban 20 Mg Tablet) 20 mg PO DAILY [facility] Last Admin: 05/07/25 09:45 Dose: 20 mg Documented By: ABIGAIL Sodium Chloride (0.9 % Sodium Chloride Flush 3 Ml Syringe) 3 ml IVFLUSH QSHIFT [facility] Last Admin: 05/07/25 22:02 Dose: 3 ml Documented By: RAKESH Thiamine HCl (Thiamine Hcl 100 Mg Tablet) 100 mg PO DAILY [facility] Stop: 05/10/25 08:59 Last Admin: 05/07/25 09:28 Dose: 100 mg Documented By: ABIGAIL Labs 05/08/25 07:01 05/08/25 07:01 Labs: Laboratory Results - last 24 hr 05/08/25 05/08/25 07:01 07:05 MCV 92.9 MCH 31.2 MCHC 33.6 RDW 14.2 Plt Count 199 MPV 8.8 L Absolute Nucleated RBC 0.000 Nucleated RBC % (auto) 0.0 VBG pH 7.46 H VBG pCO2 35 VBG pO2 42 VBG HCO3 26 VBG O2 Saturation 68.0 VBG Base Excess 2.6 Anion Gap 12 Estim Creat Clear Calc 125.3 Estimated GFR > 60 Random Glucose 100 Calcium 8.5 Magnesium 2.1 Total Bilirubin 0.7 Direct Bilirubin 0.3 AST 35 ALT 18 Alkaline Phosphatase 51 Ammonia 27 Total Protein 6.5 Albumin 3.7 Assessment and Plan (1) Cognitive and behavioral changes: Status: Acute (2) Transient cerebral ischemia: Status: Acute Plan 69M PMH hypertension, hyperlipidemia, paroxysmal AFib on Xarelto, alcohol dependence, memory deficits presented with confusion and word-finding difficulty Confusion/word-finding difficulty MRI negative, TIA/CVA ruled out Neuro appreciated EEG negative Likely cognitive impairment due to alcohol use continue vitamin supplement Alcohol dependence with withdrawal Ativan p.o., monitor Vitamin supplement improved Paroxysmal AFib Xarelto DVT prophylaxis-Xarelto Full code reason for continued hospitalization: dispo planning Quality Stroke Does the patient have a stroke diagnosis?: No VTE Prior VTE?: No VTE Risk Level:: Medical - moderate - high VTE Device Contraindication: N/A - Device Ordered VTE Drug Contraindication: Treatment Not Indicated
[2025-05-08] MEDS: 0.9 % Sodium Chloride Flush 3 ML SYRINGE IVFLUSH ×3 (10:45→20:49)
[2025-05-08 11:44] VITALS: BP 110/60; PULSE 80; RESP 20; TEMP 36.6; O2SAT 98
[2025-05-08 15:35] VITALS: BP 116/62; PULSE 96; RESP 18; TEMP 36.5; O2SAT 99
--- NOTE | 2025-05-08 15:59 | MHC.CM.PN ---
Addendum entered by Sabina Hernandez 05/10/25 16:41: PT WILL REMAIN ONE MORE NIGHT, PER MD, SCHEDULED [facility] WILL BE ADDED SNFS FOLLOWING, NO [place] BED OFFERS AT THIS TIME Original Note: PT MAY BE READY TO DC TOMORROW, [facility] ONLY [facility] FOLLOWING, THEY WILL REVIEW UPDATES PROVIDED
[2025-05-08 19:31] VITALS: BP 123/76; PULSE 76; RESP 18; TEMP 37.1; O2SAT 97
[2025-05-08] MEDS: diazePAM 10 MG/2 ML CARTRIDGE 5 MG IVPUSH (20:48)
[2025-05-09 06:34] VITALS: BP 140/91; PULSE 77; RESP 16; TEMP 36; O2SAT 97
[2025-05-09 08:00] VITALS: BP 136/72; PULSE 75; RESP 18; TEMP 37.3; O2SAT 99
[2025-05-09] MEDS: 0.9 % Sodium Chloride Flush 3 ML SYRINGE IVFLUSH ×3 (08:05→23:09)
[2025-05-09] MEDS: Metoprolol Succinate ER 25 MG TAB.ER.24H PO (09:16)
--- NOTE | 2025-05-09 09:38 | HO.PM.IMPN ---
Subjective Subjective Date of Service: 05/09/25 Interval History: weak, tired Physical Exam Exam: Exam: General: AO X 2, no acute distress Resp: CTA bilateral, no accessory muscles used CVS: S1,S2,RRR GI: soft, non tender, non distended Vital Signs: Vital Signs: Last Vital Signs Temp 99.2 F 05/09/25 08:00 Pulse 75 05/09/25 08:00 Resp 18 05/09/25 08:00 BP 136/72 05/09/25 08:00 Pulse Ox 99 05/09/25 08:00 O2 Del Method Room Air 05/09/25 08:00 BMI result Body Mass Index 32.8 Objective Data Active Medications Acetaminophen (Acetaminophen 325 Mg Tablet) 650 mg PO Q6H PRN PRN Reason: Pain, Mild 1-3,fever,headache Atorvastatin Calcium (Atorvastatin Calcium 80 Mg Tablet) 80 mg PO DAILY [facility] Last Admin: 05/09/25 09:16 Dose: 80 mg Documented By: ABIGAIL Calcium Carbonate (Calcium Carbonate 750 Mg Tab.Chew) 750 mg PO Q4H PRN PRN Reason: Heartburn Folic Acid (Folic Acid 1 Mg Tablet) 1 mg PO DAILY [facility] Stop: 05/10/25 08:59 Last Admin: 05/09/25 09:16 Dose: 1 mg Documented By: ABIGAIL Lorazepam (Lorazepam 1 Mg Tablet) 1 mg PO Q4H PRN PRN Reason: Breakthrough alcohol withdrawa Stop: 05/10/25 20:12 Last Admin: 05/08/25 18:08 Dose: 1 mg Documented By: RENA Lorazepam (Lorazepam 0.5 Mg Tablet) 0.5 mg PO Q6H [facility] Stop: 05/10/25 22:14 Last Admin: 05/09/25 06:09 Dose: 0.5 mg Documented By: SILVESTRE Magnesium Hydroxide (Milk Of Magnesia 30 Ml Oral.Susp) 30 ml PO DAILY PRN PRN Reason: Constipation Last Admin: 05/08/25 10:22 Dose: 30 ml Documented By: RENA Melatonin (Melatonin 3 Mg Tablet) 6 mg PO BEDTIME PRN PRN Reason: Insomnia Metoprolol Succinate (Metoprolol Succinate Er 25 Mg Tab.Er.24h) 25 mg PO DAILY [facility]; Protocol Last Admin: 05/09/25 09:16 Dose: 25 mg Documented By: ABIGAIL Multivitamins/Vitamin C (Multivitamin Tablet) 1 tab PO DAILY [facility] Last Admin: 05/09/25 09:16 Dose: 1 tab Documented By: ABIGAIL Omeprazole (Omeprazole 20 Mg Capsule.Dr) 20 mg PO DAILY@0630 [facility] Last Admin: 05/09/25 06:09 Dose: 20 mg Documented By: SILVESTRE Rivaroxaban (Rivaroxaban 20 Mg Tablet) 20 mg PO DAILY [facility] Last Admin: 05/09/25 09:16 Dose: 20 mg Documented By: ABIGAIL Sodium Chloride (0.9 % Sodium Chloride Flush 3 Ml Syringe) 3 ml IVFLUSH QSHIFT [facility] Last Admin: 05/09/25 08:05 Dose: 3 ml Documented By: ABIGAIL Thiamine HCl (Thiamine Hcl 100 Mg Tablet) 100 mg PO DAILY [facility] Stop: 05/10/25 08:59 Last Admin: 05/09/25 09:16 Dose: 100 mg Documented By: ABIGAIL Labs 05/08/25 07:01 05/08/25 07:01 Assessment and Plan (1) Cognitive and behavioral changes: Status: Acute (2) Transient cerebral ischemia: Status: Acute Plan 69M PMH hypertension, hyperlipidemia, paroxysmal AFib on Xarelto, alcohol dependence, memory deficits presented with confusion and word-finding difficulty Confusion/word-finding difficulty MRI negative, TIA/CVA ruled out Neuro appreciated EEG negative Likely cognitive impairment due to alcohol use continue vitamin supplement improved Alcohol dependence with withdrawal Ativan p.o., monitor Vitamin supplement improved Paroxysmal AFib Xarelto DVT prophylaxis-Xarelto Full code reason for continued hospitalization: dispo planning Quality Stroke Does the patient have a stroke diagnosis?: No VTE Prior VTE?: No VTE Risk Level:: Medical - moderate - high VTE Device Contraindication: N/A - Device Ordered VTE Drug Contraindication: Treatment Not Indicated
[2025-05-09 12:00] VITALS: BP 131/78; PULSE 78; RESP 19; TEMP 36.6; O2SAT 98
[2025-05-09 16:00] VITALS: BP 127/64; PULSE 80; RESP 19; TEMP 36.4; O2SAT 98
[2025-05-09 19:29] VITALS: BP 123/64; PULSE 85; RESP 16; TEMP 36.3; O2SAT 99
[2025-05-09] MEDS: diazePAM 10 MG/2 ML CARTRIDGE 5 MG IVPUSH (22:50)
[2025-05-10] VITALS (7 sets, daily range): BP systolic 108–140; BP diastolic 64–82; PULSE 79–96; RESP 16–20; TEMP 36–36.6; O2SAT 95–100
[2025-05-10 05:45] LABS: Appearance Urine Clear; Glucose Urine UA Negative (Negative); PH 7.0 (5.0-9.0); Specific Gravity - Urine 1.010 (1.005-1.025)
[2025-05-10] MEDS: Metoprolol Succinate ER 25 MG TAB.ER.24H PO (08:29)
--- NOTE | 2025-05-10 08:38 | PC.NURSE ---
Addendum entered by Yaniv Luong RN 05/11/25 08:01: pharmacy ok'd administration of xeralto this AM w/ breakfast. does not have to be with evening meal Original Note: flo this AM 7
--- NOTE | 2025-05-10 09:45 | P.PNIM_ITS ---
Subjective Subjective Date of Service: 05/10/25 Interval History: sundowned last night needed valium Physical Exam 2 Exam: Exam: General: AO X 2, no acute distress Resp: CTA bilateral, no accessory muscles used CVS: S1,S2,RRR GI: soft, non tender, non distended Vital Signs: Vital Signs: Last Vital Signs Temp 97.0 F 05/10/25 08:00 Pulse 79 05/10/25 08:00 Resp 18 05/10/25 08:00 BP 134/82 05/10/25 08:00 Pulse Ox 96 05/10/25 08:00 O2 Del Method Room Air 05/10/25 08:00 BMI result Body Mass Index 32.8 Objective Data Active Medications Acetaminophen (Acetaminophen 325 Mg Tablet) 650 mg PO Q6H PRN PRN Reason: Pain, Mild 1-3,fever,headache Atorvastatin Calcium (Atorvastatin Calcium 80 Mg Tablet) 80 mg PO DAILY [facility] Last Admin: 05/10/25 08:29 Dose: 80 mg Documented By: CHANA Calcium Carbonate (Calcium Carbonate 750 Mg Tab.Chew) 750 mg PO Q4H PRN PRN Reason: Heartburn Hydroxyzine HCl (Hydroxyzine Hcl 25 Mg Tablet) 25 mg PO Q8H PRN PRN Reason: Anxiety Last Admin: 05/10/25 05:09 Dose: 25 mg Documented By: FAISAL Lorazepam (Lorazepam 1 Mg Tablet) 1 mg PO Q4H PRN PRN Reason: Breakthrough alcohol withdrawa Stop: 05/10/25 20:12 Last Admin: 05/08/25 18:08 Dose: 1 mg Documented By: RENA Magnesium Hydroxide (Milk Of Magnesia 30 Ml Oral.Susp) 30 ml PO DAILY PRN PRN Reason: Constipation Last Admin: 05/08/25 10:22 Dose: 30 ml Documented By: RENA Melatonin (Melatonin 3 Mg Tablet) 6 mg PO BEDTIME PRN PRN Reason: Insomnia Last Admin: 05/09/25 21:39 Dose: 6 mg Documented By: FAISAL Metoprolol Succinate (Metoprolol Succinate Er 25 Mg Tab.Er.24h) 25 mg PO DAILY [facility]; Protocol Last Admin: 05/10/25 08:29 Dose: 25 mg Documented By: CHANA Multivitamins/Vitamin C (Multivitamin Tablet) 1 tab PO DAILY [facility] Last Admin: 05/10/25 08:29 Dose: 1 tab Documented By: CHANA Omeprazole (Omeprazole 20 Mg Capsule.) 20 mg PO DAILY@0630 [facility] Last Admin: 05/10/25 05:09 Dose: 20 mg Documented By: FAISAL Quetiapine Fumarate (Quetiapine Fumarate 25 Mg Tablet) 25 mg PO BEDTIME [facility] Rivaroxaban (Rivaroxaban 20 Mg Tablet) 20 mg PO DAILY [facility] Last Admin: 05/10/25 08:29 Dose: 20 mg Documented By: CHANA Sodium Chloride (0.9 % Sodium Chloride Flush 3 Ml Syringe) 3 ml IVFLUSH QSHIFT [facility] Last Admin: 05/10/25 07:07 Dose: Not Given Documented By: CHANA Non-Admin Reason: Previously Administered Tamsulosin HCl (Tamsulosin Hcl 0.4 Mg Capsule) 0.4 mg PO BEDTIME [facility] Last Admin: 05/09/25 21:39 Dose: 0.4 mg Documented By: FAISAL Labs 05/08/25 07:01 05/08/25 07:01 Labs: Laboratory Results - last 24 hr 05/10/25 05:30 Urine Color Yellow Urine Appearance Clear Urine pH 7.0 Ur Specific [place] 1.010 Urine Protein Negative Urine Glucose (UA) Negative Urine Ketones Trace Urine Blood Negative Urine Nitrite Negative Ur Leukocyte Esterase Negative Assessment and Plan (1) Cognitive and behavioral changes: Status: Acute (2) Transient cerebral ischemia: Status: Acute Plan 69M PMH hypertension, hyperlipidemia, paroxysmal AFib on Xarelto, alcohol dependence, memory deficits presented with confusion and word-finding difficulty Confusion/word-finding difficulty MRI negative, TIA/CVA ruled out Neuro appreciated EEG negative Likely cognitive impairment due to alcohol use continue vitamin supplement improved acute hospital delerium seroquel at bedtime Alcohol dependence with withdrawal Ativan p.o., monitor Vitamin supplement improved Paroxysmal AFib Xarelto DVT prophylaxis-Xarelto Full code reason for continued hospitalization: ams Quality Stroke Does the patient have a stroke diagnosis?: No VTE Prior VTE?: No VTE Risk Level:: Medical - moderate - high VTE Device Contraindication: N/A - Device Ordered VTE Drug Contraindication: Treatment Not Indicated
--- NOTE | 2025-05-10 12:29 | MHC.SLORD ---
Speech Language Pathology Order Status: PAIRER SUBSTANDARD arrived to see patient for speech treatment. Patient was using the bathroom, ANALYTICAL SCIENCES DIRECTOR waiting to go on a walk with patient. RN reported no concerns related to swallow and that patient has been communicating well. PAIRER SUBSTANDARD discussed w/ Dr. Florez, who reported patient will need continued speech services.
[2025-05-10] MEDS: 0.9 % Sodium Chloride Flush 3 ML SYRINGE IVFLUSH (20:36)
[2025-05-11 07:14] VITALS: BP 156/74; PULSE 91; RESP 18; TEMP 36.6; O2SAT 97
[2025-05-11 07:19] LABS: Anion Gap 13 (12-20); Blood Urea Nitrogen 8 mg/dL (9-16); Calcium 8.8 mg/dL (8.4-10.2); Carbon Dioxide 27 mmol/L (22-29); Chloride 104 mmol/L (96-108); Creatinine Clr Calc Pharmacy 123.3; Estimated Glomerular Filt Rate > 60; Magnesium 1.9 mg/dL (1.6-2.6); Potassium 3.8 mmol/L (3.3-5.1); Sodium 140 mmol/L (135-145)
[2025-05-11 07:33] LABS: Hematocrit 37.8 % (42.0-52.0); Hemoglobin 12.3 g/dl (14.0-18.0); Mean Corpuscular HGB Conc 32.5 g/dl (31.0-36.0); Mean Corpuscular Hemoglobin 30.4 pg (27.0-33.0); Mean Corpuscular Volume 93.6 fL (80.0-98.0); NRBC Abs Auto 0.000 X10*3/uL (0.0-0.012); NRBC Pct Auto 0.0 /100WBC (0.0-0.2); Platelet Count 282 X10*3/uL (160-400); Red Blood Count 4.04 X10*6/uL (4.60-5.80); White Blood Count 6.2 X10*3/uL (4.8-10.8)
[2025-05-11] MEDS: Metoprolol Succinate ER 25 MG TAB.ER.24H PO (07:59)
--- NOTE | 2025-05-11 10:41 | HO.PM.IMPN ---
Subjective Subjective Date of Service: 05/11/25 Interval History: did better overnight, did not require prns Physical Exam Exam: Exam: General: AO X 2, no acute distress Resp: CTA bilateral, no accessory muscles used CVS: S1,S2,RRR GI: soft, non tender, non distended Vital Signs: Vital Signs: Last Vital Signs Temp 97.9 F 05/11/25 07:14 Pulse 91 05/11/25 07:14 Resp 18 05/11/25 07:14 BP 156/74 H 05/11/25 07:14 Pulse Ox 97 05/11/25 07:14 O2 Del Method Room Air 05/11/25 07:14 BMI result Body Mass Index 32.8 Objective Data Active Medications Acetaminophen (Acetaminophen 325 Mg Tablet) 650 mg PO Q6H PRN PRN Reason: Pain, Mild 1-3,fever,headache Atorvastatin Calcium (Atorvastatin Calcium 80 Mg Tablet) 80 mg PO DAILY [facility] Last Admin: 05/11/25 07:59 Dose: 80 mg Documented By: CHANA Calcium Carbonate (Calcium Carbonate 750 Mg Tab.Chew) 750 mg PO Q4H PRN PRN Reason: Heartburn Hydroxyzine HCl (Hydroxyzine Hcl 25 Mg Tablet) 25 mg PO Q8H PRN PRN Reason: Anxiety Last Admin: 05/10/25 20:36 Dose: 25 mg Documented By: MANNY Magnesium Hydroxide (Milk Of Magnesia 30 Ml Oral.Susp) 30 ml PO DAILY PRN PRN Reason: Constipation Last Admin: 05/08/25 10:22 Dose: 30 ml Documented By: RENA Melatonin (Melatonin 3 Mg Tablet) 6 mg PO BEDTIME PRN PRN Reason: Insomnia Last Admin: 05/10/25 20:36 Dose: 6 mg Documented By: MANNY Metoprolol Succinate (Metoprolol Succinate Er 25 Mg Tab.Er.24h) 25 mg PO DAILY [facility]; Protocol Last Admin: 05/11/25 07:59 Dose: 25 mg Documented By: CHANA Multivitamins/Vitamin C (Multivitamin Tablet) 1 tab PO DAILY [facility] Last Admin: 05/11/25 07:59 Dose: 1 tab Documented By: CHANA Omeprazole (Omeprazole 20 Mg Capsule.Dr) 20 mg PO DAILY@0630 [facility] Last Admin: 05/11/25 06:13 Dose: 20 mg Documented By: MANUEL Quetiapine Fumarate (Quetiapine Fumarate 25 Mg Tablet) 25 mg PO BEDTIME [facility] Last Admin: 05/10/25 20:36 Dose: 25 mg Documented By: MANNY Rivaroxaban (Rivaroxaban 20 Mg Tablet) 20 mg PO DAILY [facility] Last Admin: 05/11/25 07:59 Dose: 20 mg Documented By: CHANA Sodium Chloride (0.9 % Sodium Chloride Flush 3 Ml Syringe) 3 ml IVFLUSH QSHIFT [facility] Last Admin: 05/11/25 07:23 Dose: Not Given Documented By: CHANA Non-Admin Reason: Previously Administered Tamsulosin HCl (Tamsulosin Hcl 0.4 Mg Capsule) 0.4 mg PO BEDTIME [facility] Last Admin: 05/10/25 20:36 Dose: 0.4 mg Documented By: MANNY Labs 05/11/25 06:35 05/11/25 06:35 Labs: Laboratory Results - last 24 hr 05/11/25 06:35 MCV 93.6 MCH 30.4 MCHC 32.5 RDW 13.7 Plt Count 282 D MPV 9.3 L Absolute Nucleated RBC 0.000 Nucleated RBC % (auto) 0.0 Anion Gap 13 Estim Creat Clear Calc 123.3 Estimated GFR > 60 Random Glucose 100 Calcium 8.8 Magnesium 1.9 Assessment and Plan (1) Cognitive and behavioral changes: Status: Acute (2) Transient cerebral ischemia: Status: Acute Plan 69M PMH hypertension, hyperlipidemia, paroxysmal AFib on Xarelto, alcohol dependence, memory deficits presented with confusion and word-finding difficulty Confusion/word-finding difficulty MRI negative, TIA/CVA ruled out Neuro appreciated EEG negative Likely cognitive impairment due to alcohol use continue vitamin supplement improved acute hospital delerium seroquel at bedtime Alcohol dependence with withdrawal Ativan p.o., monitor Vitamin supplement resolved Paroxysmal AFib Xarelto DVT prophylaxis-Xarelto Full code reason for continued hospitalization: dispo planning Quality Stroke Does the patient have a stroke diagnosis?: No VTE Prior VTE?: No VTE Risk Level:: Medical - moderate - high VTE Device Contraindication: N/A - Device Ordered VTE Drug Contraindication: Treatment Not Indicated
--- NOTE | 2025-05-11 10:42 | P.DS_ITS ---
DS: Providers Provider Date of Service: 05/11/25 Date of admission: 05/05/25 19:25 Date of discharge: 05/11/25 Primary care physician: Néstor Busch MD Consults: 05/05/25 19:29 Consult to Neurology Routine Consulting Provider: Marbella Hastings Reason for consultation: TIA DS: Diagnosis Discharge Diagnosis (1) Cognitive and behavioral changes: Status: Acute (2) Transient cerebral ischemia: Status: Acute DS: Summary Hospital Course Hospital Course: from initial hpi: 69-year-old male with a past medical history of HTN, HLD, atrial fibrillation on Xarelto; memory deficits; presented to the hospital today with a chief complaint of confusion/word-finding difficulty. Most of history obtained from the patient's daughter who reports that patient was noted to be confused and talking about his job for which he retired long ago. Mentions that her uncle went to check on the patient and and the patient is constantly talking about his job. Also noted patient having word-finding difficulty confirmed by the EMS subsequently brought into the hospital for further evaluation. At the time of my interview patient's speech is almost back to his normal as per the patient's daughter at bedside. Patient denies any numbness or tingling. Denies any headaches or blurry visions. Denies any focal weakness. Denies any GI or symptoms. Denies any chest pain or palpitations. Review of all other systems is negative except mentioned above ER course: Per ER team, patient's exam was nonfocal; symptoms resolved. Patient oriented times 2-3. UA negative. CT head and CT angio head and neck showed no acute findings. hospital course: Patient was admitted for cognitive/word-finding difficulty. Additionally treated as CVA/TIA but this was ruled out with a negative MRI. Was seen by Neurology who felt this was likely cognitive impairment due to alcohol use. EEG was negative for seizure. Patient was started on vitamin supplements recommended to avoid alcohol. Speech did improve somewhat. Course complicated by acute hospital and alcohol withdrawal delirium. Was treated with Ativan taper, alcohol withdrawal resolved. Still has some element of hospital delirium with sundowning at night, was started on Seroquel 25 mg at bedtime with good result. For paroxysmal AFib was continued on Xarelto. Patient medically stable was seen by physical therapy recommended short-term rehab to which patient will be discharged. He is expected require less than 30 days. Time Attestation Discharge Coordination Time (in mins): 32 Quality: Safe Use of Opioids Does Pt have an Active Cancer Diagnosis on the Problem List?: No Quality: Stroke Does the patient have a stroke diagnosis?: No Physical Exam Exam: Exam: General: AO X 2, no acute distress Resp: CTA bilateral, no accessory muscles used CVS: S1,S2,RRR GI: soft, non tender, non distended Vital Signs: Vital Signs: Last Vital Signs Temp 97.9 F 05/11/25 07:14 Pulse 91 05/11/25 07:14 Resp 18 05/11/25 07:14 BP 156/74 H 05/11/25 07:14 Pulse Ox 97 05/11/25 07:14 O2 Del Method Room Air 05/11/25 07:14 BMI result Body Mass Index 32.8 DS: Data Data Completed and Pending Labs on day of discharge: Laboratory Results - last 24 hr 05/11/25 06:35 WBC 6.2 RBC 4.04 L Hgb 12.3 L Hct 37.8 L MCV 93.6 MCH 30.4 MCHC 32.5 RDW 13.7 Plt Count 282 D MPV 9.3 L Absolute Nucleated RBC 0.000 Nucleated RBC % (auto) 0.0 Sodium 140 Potassium 3.8 Chloride 104 Carbon Dioxide 27 Anion Gap 13 BUN 8 L Creatinine 0.63 Estim Creat Clear Calc 123.3 Estimated GFR > 60 Random Glucose 100 Calcium 8.8 Magnesium 1.9 Discharge Plan Discharge Anticipated Discharge Date/Time: 05/11/25 10:37 Patient Disposition: Xfer SNF Discharge Diagnosis: alcohol dementia, delerium, etoh withdrawal Referrals: Néstor Busch MD [Primary Care Provider, Internal Medicine] - 1 Week Discharge Medications: New multivitamin [Daily-Anthony] Tablet 1 tab PO DAILY Qty: 0 0RF quetiapine 25 mg Tablet 25 mg PO BEDTIME Qty: 0 0RF tamsulosin 0.4 mg Capsule 0.4 mg PO BEDTIME Qty: 0 0RF omeprazole 20 mg Capsule,Delayed Release(Dr/Ec) 20 mg PO DAILY@0630 Qty: 0 0RF thiamine HCl (vitamin B1) 100 mg capsule 100 mg PO DAILY Qty: 90 0RF folic acid 1 mg tablet 1 mg PO DAILY Qty: 90 0RF Continued Xarelto 20 mg tablet 20 mg PO DAILY Qty: 90 3RF Rx Instructions: must administer with evening meal. Enrolled in Xarelto withME savings program metoprolol succinate 25 mg tablet extended release 24 hr 25 mg PO DAILY Qty: 90 3RF Men's 50 Plus Daily Formula 400-20-370 mcg Tablet 1 tab PO DAILY atorvastatin 40 mg tablet 40 mg PO BEDTIME Discontinued diphenhydramine-acetaminophen [Tylenol PM Extra Strength] 25-500 mg Tablet 1 tab PO BEDTIME PRN (Reason: Sleep) Discharge Orders: Discharge Order (Routine); Ordered 05/11/25 Ordered By: Moris Florez Diet: Advance to usual diet Activity on Discharge: As tolerated Stand Alone Forms: Patient Portal Discharge page Print Language: Anguillan Care Plan Goals: recovery Health Concerns: etoh dementia, delerium Plan of Treatment: avoid etoh, continue supplements and bedtime seroquel rehab Assessment: see above
[2025-05-11 11:17] VITALS: BP 116/59; PULSE 97; RESP 18; TEMP 36.4; O2SAT 97
[2025-05-11 15:17] VITALS: BP 126/81; PULSE 88; RESP 18; TEMP 36.7; O2SAT 96
--- NOTE | 2025-05-11 18:07 | MHC.SL.SOA ---
Referring Provider: Dr. Driscoll Reason for Referral: Speech/Language/Cognitive evaluation Date of Plan of Treatment:05/06/25 Onset of Symptoms/Illness:05/05/25 Date Treatment Started:05/06/25 Medical Diagnosis:Acute confusion; Transient cerebral ischemia Primary Speech Language Diagnosis:R41.841 Cognitive communication disorder Secondary Speech Language Diagnosis:R47.01 Aphasia Number of Authorized Visits Remaining: Authorization End Date: Reason for Visit:[id number] Individual Treatment Other: Subjective: Patient was awake, alert, pleasant and willing to engage in this assessment. Objective: Attempted to administer the Repeatable Battery for the Assessment of Neuropsychological Status (RBANS). Assessment:OVERCOILER re-attempted to assess patient's cognitive status with the Repeatable Battery for the Assessment of Neuropsychological Status (RBANS). Patient was awake, alert, pleasant and willing to engage in this assessment. OVERCOILER initially engaged patient in story he had told on initial assessment, with patient being a little more specific about how he had brought down the chimney of the power [place] on [address], however in his description, had occasional garbled words. The RBANs was re-attempted, with tasks that included repetition of a list of words, repetition or recall of a three sentence story, and generating words given a specific category. Patient was unable to recall any words from the list on the first three trials (the task is repeated 4 times) on the 4th trials he was directed to try to recall the first and last word on the list, and he was able to recall the first word. On the story recall, he was unable to recall any element of the story and conflated it with his story about the power plant. On the second trial, he was unable to recall or respond to the story presented. When asked to list fruits and vegetables, he was able to list five items, though stopped and started, commented this is difficult, and at times lost track of the task. Patient is presenting with severe difficulty with attention, processing and understanding language and memory. He is able to make small talk and at times pleasantly engage communicatively, but has an underlying moderate to severe cognitive/linguistic impairment that is new onset. Notes: Patient will need continued speech therapy services after discharge. Seen by: Graduate/Clinical Fellow: No Supervisory Statement: f_Reg Query Last Value , [facility] Speech Language Pathologist: Namrata Reagan M.A., [facility]
[2025-05-11 19:44] VITALS: BP 127/65; PULSE 72; RESP 16; TEMP 36.9; O2SAT 98
[2025-05-11] MEDS: 0.9 % Sodium Chloride Flush 3 ML SYRINGE IVFLUSH (20:40)
[2025-05-12] VITALS: BP 114/59; PULSE 63; RESP 16; TEMP 36.7; O2SAT 95
[2025-05-12 08:00] VITALS: BP 116/57; PULSE 83; RESP 20; TEMP 36.6; O2SAT 96
[2025-05-12] MEDS: Metoprolol Succinate ER 25 MG TAB.ER.24H PO (08:10)
[2025-05-12] MEDS: 0.9 % Sodium Chloride Flush 3 ML SYRINGE IVFLUSH (08:11)
[2025-05-12 12:00] VITALS: BP 114/58; PULSE 89; RESP 16; TEMP 36.2; O2SAT 96
--- NOTE | 2025-05-12 12:03 | MHC.CM.PN ---
PT MEDICALLY CLEARED FOR DC TO [facility] AT [facility] FOR BLS TRANSPORT
--- NOTE | 2025-05-12 12:52 | P.DS_ITS ---
DS: Providers Provider Date of Service: 05/12/25 Date of admission: 05/05/25 19:25 Date of discharge: 05/12/25 Primary care physician: Néstor Busch MD Consults: 05/05/25 19:29 Consult to Neurology Routine Consulting Provider: Marbella Hastings Reason for consultation: TIA Attending physician on discharge: Alvina Oakley Discharging clinician: Alvina Oakley DS: Diagnosis Discharge Diagnosis (1) Cognitive and behavioral changes: Status: Acute (2) Transient cerebral ischemia: Status: Acute DS: Summary Hospital Course Hospital Course: from initial hpi: 69-year-old male with a past medical history of HTN, HLD, atrial fibrillation on Xarelto; memory deficits; presented to the hospital today with a chief complaint of confusion/word-finding difficulty. Most of history obtained from the patient's daughter who reports that patient was noted to be confused and talking about his job for which he retired long ago. Mentions that her uncle went to check on the patient and and the patient is constantly talking about his job. Also noted patient having word-finding difficulty confirmed by the EMS subsequently brought into the hospital for further evaluation. At the time of my interview patient's speech is almost back to his normal as per the patient's daughter at bedside. Patient denies any numbness or tingling. Denies any headaches or blurry visions. Denies any focal weakness. Denies any GI or symptoms. Denies any chest pain or palpitations. Review of all other systems is negative except mentioned above ER course: Per ER team, patient's exam was nonfocal; symptoms resolved. Patient oriented times 2-3. UA negative. CT head and CT angio head and neck showed no acute findings. hospital course: Patient was admitted for cognitive/word-finding difficulty. Additionally treated as CVA/TIA but this was ruled out with a negative MRI. Was seen by Neurology who felt this was likely cognitive impairment due to alcohol use. EEG was negative for seizure. Patient was started on vitamin supplements recommended to avoid alcohol. Speech did improve somewhat. Course complicated by acute hospital and alcohol withdrawal delirium. Was treated with Ativan taper, alcohol withdrawal resolved. Still has some element of hospital delirium with sundowning at night, was started on Seroquel 25 mg at bedtime with good result. For paroxysmal AFib was continued on Xarelto. Patient medically stable was seen by physical therapy recommended short-term rehab to which patient will be discharged. He is expected require less than 30 days. plan: avoid etoh, continue supplements and bedtime seroquel Assessment and plan coordination time spent 45 minute. Time Attestation Total time managing care of this patient today: 45 mintues. Discharge Coordination Time (in mins): 45min Quality: Safe Use of Opioids Does Pt have an Active Cancer Diagnosis on the Problem List?: No Quality: Stroke Does the patient have a stroke diagnosis?: No Physical Exam Exam: Exam: General: AO X 2, no acute distress Resp: CTA bilateral, no accessory muscles used CVS: S1,S2,RRR GI: soft, non tender, non distended Vital Signs: Vital Signs: Last Vital Signs Temp 97.1 F 05/12/25 12:00 Pulse 89 05/12/25 12:00 Resp 16 05/12/25 12:00 BP 114/58 L 05/12/25 12:00 Pulse Ox 96 05/12/25 12:00 O2 Del Method Room Air 05/12/25 12:00 BMI result Body Mass Index 32.8 DS: Data Imaging Chest x-ray: My impression: mri: No acute intracranial abnormality. Cta: No evidence of stenoses of the internal carotid artery. No large intracranial artery occlusion. Limitation as above. echo: Conclusions: - 1. Technically difficult study 2. LV ejection fraction in his normal on this study with LVEF 60 65% 3. At least moderately dilated left atrium 4. Limited visualization of cardiac valves with normal cardiac valvular Dopplers Findings Procedure Information Contrast agent, definity, is being given per protocol without apparent complications. Left Ventricle Normal left ventricular size, thickness, and systolic function. The visually estimated ejection fraction is between 60-65%. Diastolic function is indeterminate on the basis of available data. Right Ventricle The right ventricle was not well visualized. There is borderline right ventricular systolic function. Atria The left atrium is moderately dilated. Interatrial shunt cannot be excluded. The right atrium was not well visualized. Aortic Valve The aortic valve was not well visualized. There is no aortic valve stenosis. There is no aortic valve regurgitation. Mitral Valve The mitral valve was not well visualized. There is no mitral valve stenosis. Pulmonic Valve The pulmonic valve was not well visualized. Tricuspid Valve The tricuspid valve was not well visualized. Tricuspid regurgitation envelope is inadequate for calculation of right ventricular systolic pressure. Normal right atrial pressure. Great Vessels The aorta was not well visualized. The pulmonary artery was not well visualized. Venous The inferior vena cava is normal in size and collapses greater than 50% with inspiration. Pericardium/Pleural The pericardium was not well visualized. Discharge Plan Discharge Anticipated Discharge Date/Time: 05/11/25 10:37 Patient Disposition: Xfer SNF Discharge Diagnosis: alcohol dementia, delerium, etoh withdrawal Referrals: [facility] [Outside] - 1 Day Referral Note: SHORT TERM REHAB Néstor Busch MD [Primary Care Provider, Internal Medicine] - 1 Week Discharge Medications: New multivitamin [Daily-Anthony] Tablet 1 tab PO DAILY Qty: 0 0RF quetiapine 25 mg Tablet 25 mg PO BEDTIME Qty: 0 0RF tamsulosin 0.4 mg Capsule 0.4 mg PO BEDTIME Qty: 0 0RF omeprazole 20 mg Capsule,Delayed Release(Dr/Ec) 20 mg PO DAILY@0630 Qty: 0 0RF thiamine HCl (vitamin B1) 100 mg capsule 100 mg PO DAILY Qty: 90 0RF folic acid 1 mg tablet 1 mg PO DAILY Qty: 90 0RF Continued Xarelto 20 mg tablet 20 mg PO DAILY Qty: 90 3RF Rx Instructions: must administer with evening meal. Enrolled in Xarelto withME savings program metoprolol succinate 25 mg tablet extended release 24 hr 25 mg PO DAILY Qty: 90 3RF Men's 50 Plus Daily Formula 400-20-370 mcg Tablet 1 tab PO DAILY atorvastatin 40 mg tablet 40 mg PO BEDTIME Discontinued diphenhydramine-acetaminophen [Tylenol PM Extra Strength] 25-500 mg Tablet 1 tab PO BEDTIME PRN (Reason: Sleep) Discharge Orders: Discharge Order (Routine); Ordered 05/12/25 Ordered By: Alvina Oakley Diet: Advance to usual diet Activity on Discharge: As tolerated Stand Alone Forms: Patient Portal Discharge page Print Language: Cambodian Care Plan Goals: recovery Health Concerns: etoh dementia, delerium Plan of Treatment: avoid etoh, continue supplements and bedtime seroquel rehab Assessment: see above Discharge Date/Time: 05/12/25 13:15
== END 2025-05-12 13:15 | disposition skilled nursing facility (03) | DRG 69 ==
LOC: HO.ED 19:26 → HO.EDOVER 19:37 → HO.IMC 05-06 16:29
PROVIDERS: Internal Medicine; Registered Nurse Emergency; Admitting Provider Hospitalist; Emergency Provider Emergency Medicine; PCP Internal Medicine; Visit Provider Internal Medicine
DX: G45.9 Transient cerebral ischemic attack, unspecified (principal); F10.239 Alcohol dependence with withdrawal, unspecified; I48.0 Paroxysmal atrial fibrillation; Z63.4 Disappearance and death of family member; Z79.01 Long term (current) use of anticoagulants; Z79.899 Other long term (current) drug therapy
CPT/HCPCS: 36415; 70450; 70496; 70498; 70551; 80048; 80053; 80061; 80076; 81003; 82140; 82607; 82746; 82803; 82947; 83605; 83735; 84443; 84484; 85025; 85027; 85610; 85730; 86780; 92507; 92523; 93005; 93306; 95816; 97110; 97116; 97162; 97165; 97530; 97535; 99285; J3360; Q9957; Q9967

== ENCOUNTER → 2025-05-05 17:21 | Outpatient (BNV) | payer MEDICARE, OTHER, SELFPAY | PROVIDERS: Admitting Provider Hospitalist; Emergency Provider Emergency Medicine; PCP Internal Medicine; Visit Provider Internal Medicine Cardiovascular Disease | DX: I48.91 Unspecified atrial fibrillation (principal) | CPT/HCPCS: 93010 ==

== ENCOUNTER → 2025-05-05 17:21 | Outpatient (BNV) | payer MEDICARE, OTHER, SELFPAY | PROVIDERS: Emergency Provider Emergency Medicine; PCP Internal Medicine; Visit Provider Nuclear Medicine | DX: R41.0 Disorientation, unspecified (principal); R47.01 Aphasia; J32.4 Chronic pansinusitis | CPT/HCPCS: 70450; 70496; 70498 ==

== ENCOUNTER 2025-05-05 19:25 | Outpatient (BNV) | payer MEDICARE, OTHER, SELFPAY | END 2025-05-06 07:00 | PROVIDERS: Admitting Provider Hospitalist; Emergency Provider Emergency Medicine; PCP Internal Medicine; Visit Provider Internal Medicine Cardiovascular Disease | DX: I51.7 Cardiomegaly (principal) | CPT/HCPCS: 93306 ==

== ENCOUNTER 2025-05-05 19:25 | Outpatient (BNV) | payer MEDICARE, OTHER, SELFPAY | END 2025-05-06 14:00 | PROVIDERS: Admitting Provider Hospitalist; Emergency Provider Emergency Medicine; PCP Internal Medicine; Visit Provider Psychiatry & Neurology Neurology | DX: R41.82 Altered mental status, unspecified (principal) | CPT/HCPCS: 95816 ==

== ENCOUNTER → 2025-05-05 19:25 | Outpatient (BNV) | payer MEDICARE, OTHER, SELFPAY | PROVIDERS: Admitting Provider Hospitalist; Emergency Provider Emergency Medicine; PCP Internal Medicine; Visit Provider Internal Medicine | DX: G45.9 Transient cerebral ischemic attack, unspecified (principal) | CPT/HCPCS: 99232 ==

== ENCOUNTER → 2025-05-05 19:25 | Outpatient (BNV) | payer MEDICARE, OTHER, SELFPAY | PROVIDERS: Admitting Provider Hospitalist; Emergency Provider Emergency Medicine; PCP Internal Medicine; Visit Provider Psychiatry & Neurology Neurology | DX: R41.89 Other symptoms and signs involving cognitive functions and awareness (principal); R46.89 Other symptoms and signs involving appearance and behavior | CPT/HCPCS: 99222 ==